=== PATIENT | male | born 1955 | race Caucasian/White ===

== ENCOUNTER 2021-07-30 09:54 | Outpatient (REF) | payer BC, SELFPAY ==
[2021-07-30 11:26] LABS: Hematocrit 48.8 % (42-52); Hemoglobin 15.8 g/dl (14.0-18.0); Mean Corpuscular HGB Conc 32.4 g/dl (31.0-36.0); Mean Corpuscular Hemoglobin 30.2 pg (27.0-33.0); Mean Corpuscular Volume 93.1 fL (80-98); Mean Platelet Volume 11.4 fL (9.4-12.4); Platelet Count 176 X10*3/uL (160-400); Red Blood Count 5.24 X10*6/uL (4.60-5.80); Red Cell Distribution Width 13.1 % (11.0-16.0); White Blood Count 9.7 X10*3/uL (4.8-10.8)
[2021-07-30 11:34] LABS: Alanine Aminotransferase 15 U/L (0-40); Alkaline Phosphatase 59 U/L (39-117); Anion Gap 12 (12-20); Aspartate Amino Transferase 21 U/L (5-37); Bilirubin Total 0.5 mg/dL (0.0-1.0); Blood Urea Nitrogen 11 mg/dL (9-16); Calcium 9.2 mg/dL (8.4-10.2); Carbon Dioxide 28 mmol/L (22-29); Chloride 108 mmol/L (96-108); Cholesterol 125 mg/dL; Estimated Glomerular Filt Rate > 60; Glucose Fasting 104 mg/dL (60-99); HDL Cholesterol 28 mg/dL; LDL Cholesterol Calculated 75 mg/dl; Potassium 4.6 mmol/L (3.3-5.1); Sodium 143 mmol/L (135-145); Total Protein 6.6 g/dL (6.5-8.0); Triglycerides 110 mg/dL
[2021-07-30 11:59] LABS: Prostate Specific Antigen Scr 1.78 ng/mL (<0.05-4.0)
== END 2021-07-30 09:55 | disposition home or self-care (01) ==
LOC: HO.HMGCLDS 09:54
PROVIDERS: PCP Internal Medicine; Visit Provider Internal Medicine
DX: Z12.5 Encounter for screening for malignant neoplasm of prostate (principal); E78.5 Hyperlipidemia, unspecified; F17.200 Nicotine dependence, unspecified, uncomplicated; I10 Essential (primary) hypertension
CPT/HCPCS: 36415; 80053; 80061; 84153; 85027

== ENCOUNTER 2022-06-24 06:30 | Outpatient (REF) | payer BC, SELFPAY ==
[2022-06-24 11:15] LABS: Hematocrit 48.7 % (42.0-52.0); Hemoglobin 15.8 g/dl (14.0-18.0); Mean Corpuscular HGB Conc 32.4 g/dl (31.0-36.0); Mean Corpuscular Hemoglobin 30.6 pg (27.0-33.0); Mean Corpuscular Volume 94.2 fL (80.0-98.0); Mean Platelet Volume 11.7 fL (9.4-12.4); Platelet Count 166 X10*3/uL (160-400); Red Blood Count 5.17 X10*6/uL (4.60-5.80); Red Cell Distribution Width 12.9 % (11.0-16.0); White Blood Count 7.6 X10*3/uL (4.8-10.8)
[2022-06-24 11:53] LABS: Alanine Aminotransferase 12 U/L (0-40); Alkaline Phosphatase 59 U/L (39-117); Anion Gap 14 (12-20); Aspartate Amino Transferase 19 U/L (5-37); Bilirubin Total 0.4 mg/dL (0.0-1.0); Blood Urea Nitrogen 16 mg/dL (9-16); Carbon Dioxide 26 mmol/L (22-29); Chloride 109 mmol/L (96-108); Cholesterol 133 mg/dL; Estimated Glomerular Filt Rate > 60; Glucose Fasting 108 mg/dL (60-99); HDL Cholesterol 33 mg/dL; LDL Cholesterol Calculated 74 mg/dl; Sodium 145 mmol/L (135-145); Total Protein 6.8 g/dL (6.5-8.0); Triglycerides 131 mg/dL
[2022-06-24 12:00] LABS: Prostate Specific Antigen Scr 3.26 ng/mL (<0.05-4.0)
[2022-06-24 12:18] LABS: Creatinine Urine 147.76 mg/dL; Microalbum/Creatinine Ratio Ur 54.1 ug/mg cr
== END 2022-06-24 06:31 | disposition home or self-care (01) ==
LOC: HO.HMGCLDS 06:30
PROVIDERS: Visit Provider Internal Medicine
DX: Z12.5 Encounter for screening for malignant neoplasm of prostate (principal); E78.5 Hyperlipidemia, unspecified; I10 Essential (primary) hypertension; R80.9 Proteinuria, unspecified
CPT/HCPCS: 36415; 80053; 80061; 82043; 84153; 85027

== ENCOUNTER 2023-01-25 08:00 | Outpatient (REF) | payer MEDICARE, SELFPAY ==
--- NOTE | ~2023-01-25 | CT_ITS ---
EXAMINATION: CT CHEST WITHOUT CONTRAST CLINICAL INFORMATION: Thoracic aortic aneurysm. COMPARISON: None TECHNIQUE: Multidetector volumetric CT imaging of the chest was done. Axial MIP volume rendering provided. Sagittal and coronal reformatted images were obtained. This CT examination was performed using dose optimization techniques as appropriate, variously including the following: *Automated exposure control *Adjustment of mA and/or kV according to patient size (this includes techniques or standardized protocols for targeted exams where dose is matched to indication/reason for exam; i.e. 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 There are minimal atelectatic changes in right upper lobe posteriorly. No additional areas of atelectasis, consolidation, nodules or mass. MEDIASTINUM: The thyroid lobes are symmetrical and normal. Central trachea and the bronchi are widely patent. Heart size and great vessels are normal caliber. Ascending aorta measures 4.0 x 4.2 cm. Descending thoracic aorta measures 3.2 x 3.2 cm on axial image 28/3. There is evidence of previous CABG changes. No abnormal size mediastinal or hilar lymph nodes seen. CORONARY ARTERY CALCIFICATION: Moderate coronary artery calcifications are present. PLEURA: There is no pleural effusion. No pleural mass or thickening. AXILLA: Small shotty lymph nodes are seen in the axilla bilaterally. The chest wall is unremarkable. UPPER ABDOMEN: Visualized liver, spleen, pancreas and bilateral adrenal glands are unremarkable. OSSEOUS STRUCTURES: No aggressive lytic or sclerotic process seen. There are median sternotomy sutures from previous intervention. CT/CT chest wo IV con IMPRESSION: 1. Mild aneurysmal dilatation of ascending aorta measuring 4.0 x 4.2 cm. Descending thoracic aorta measures 3.2 x 3.2 cm. 2. Minimal atelectatic changes right upper lobe posteriorly. Fleischner guidelines were followed.
== END 2023-01-25 08:01 | disposition home or self-care (01) ==
LOC: HO.CT 08:00
PROVIDERS: PCP Internal Medicine; Visit Provider Internal Medicine
DX: I71.20 Thoracic aortic aneurysm, without rupture, unspecified (principal)
CPT/HCPCS: 71250

== ENCOUNTER 2023-06-29 06:45 | Outpatient (REF) | payer MEDICARE, SELFPAY ==
[2023-06-29 11:30] LABS: MANUAL DIFF FLAG NO
[2023-06-29 11:47] LABS: Urine Cytology See Pathology rpt
[2023-06-29 11:49] LABS: Basophils Absolute Auto 0.1 X10*3/uL (0.0-0.2); Basophils Percent Auto 0.6 % (0-2); Eosinophils Absolute Auto 0.3 X10*3/uL (0.0-0.4); Eosinophils Percent Auto 3.5 % (0-4); Hematocrit 48.6 % (42.0-52.0); Hemoglobin 15.8 g/dl (14.0-18.0); Imm Gran Abs Auto 0.02 X10*3/uL (0.00-0.03); Imm Gran Pct Auto 0.3 % (0.0-0.4); Lymphocytes Absolute Auto 2.2 X10*3/uL (1.2-4.9); Mean Corpuscular HGB Conc 32.5 g/dl (31.0-36.0); Mean Corpuscular Hemoglobin 30.4 pg (27.0-33.0); Mean Corpuscular Volume 93.5 fL (80.0-98.0); Mean Platelet Volume 11.6 fL (9.4-12.4); Monocytes Absolute Auto 0.8 X10*3/uL (0.1-1.2); Monocytes Percent Auto 9.5 % (2-11); Neutrophils Absolute Auto 4.7 x10*3/uL (2.0-8.3); Neutrophils Percent Auto 59.1 % (45-73); Platelet Count 148 X10*3/uL (160-400); Red Cell Distribution Width 13.1 % (11.0-16.0)
[2023-06-29 11:52] LABS: Alanine Aminotransferase 15 U/L (0-40); Alkaline Phosphatase 56 U/L (39-117); Anion Gap 14 (12-20); Aspartate Amino Transferase 23 U/L (5-37); Bilirubin Total 0.7 mg/dL (0.0-1.0); Blood Urea Nitrogen 18 mg/dL (9-16); Calcium 9.3 mg/dL (8.4-10.2); Carbon Dioxide 25 mmol/L (22-29); Chloride 108 mmol/L (96-108); Cholesterol 118 mg/dL; Estimated Glomerular Filt Rate > 60; Glucose Fasting 120 mg/dL (60-99); HDL Cholesterol 31 mg/dL; LDL Cholesterol Calculated 68 mg/dl; Potassium 3.9 mmol/L (3.3-5.1); Sodium 143 mmol/L (135-145); Total Protein 7.2 g/dL (6.5-8.0); Triglycerides 96 mg/dL
[2023-06-29 11:55] LABS: Appearance Urine Turbid; Color Urine Dark Yellow; Glucose Urine UA Negative (Negative); Leukocyte Esterase Urine Trace (Negative); Nitrite Urine Negative (Negative); PH 5.5 (5.0-9.0); Specific Gravity - Urine 1.025 (1.005-1.025); UMIC TRIGGER UA YES; Urine Blood Moderate (2+) (Negative); Urine Ketones Trace mg/dL (Negative); Urine Protein 100 (2+) mg/dL (Neg-Trace)
[2023-06-29 12:01] LABS: Bacteria Urine None Seen (None Seen); Squamous Epithelial Cell Urine 0-2 /HPF (0-2)
[2023-06-29 12:08] LABS: PSA,Total (Free>4and<10) 3.01 ng/mL (0.00-4.00)
== END 2023-06-29 06:46 | disposition home or self-care (01) ==
LOC: HO.HMGCLDS 06:45
PROVIDERS: PCP Internal Medicine; Visit Provider Internal Medicine
DX: Z00.00 Encounter for general adult medical examination without abnormal findings (principal); Z12.5 Encounter for screening for malignant neoplasm of prostate; E78.5 Hyperlipidemia, unspecified; R31.29 Other microscopic hematuria; I10 Essential (primary) hypertension
CPT/HCPCS: 36415; 80053; 80061; 81001; 84153; 85025; 88112; 88121

== ENCOUNTER 2023-07-03 10:29 | Outpatient (AMB) | payer MEDICARE, SELFPAY ==
[2023-07-03 10:30] VITALS: BP 142/72; PULSE 59; O2SAT 96; BMI 31.3
--- NOTE | 2023-07-03 10:30 | A.OFFPC_ITS ---
Vital Signs 07/03/23 10:30 Height 5 ft 8 in Weight 206 lb BMI 31.3 BP 142/72 H Blood Pressure Location Lt brachial Position Sitting Pulse 59 Pulse Source Pulse Oximeter Pulse Oximetry (%) 96 Oxygen Delivery Method Room Air Intake Visit Reasons: 6m follow up Intake Note: Pt is here today for 6 months follow up visit. Allergies losartan Adverse Reaction (Intermediate, Verified 07/03/23 10:33) headache, muscle aches Medication List - Last Reconciled 07/03/23 by Merle Daniel MD ezetimibe-simvastatin 10-80 mg 1 tab PO DAILY famotidine (Pepcid) 40 mg PO BEDTIME metoprolol succinate ER 25 mg PO DAILY olmesartan 5 mg PO DAILY Tobacco use date assessed: 07/03/23 Fall risk assessment: No Falls in past year Last assessed Fall Risk: 07/03/23 Dental Screening Dental Screen Date: 07/03/23 Did you have a dental visit in the last 12 months?: No Did you have a dental problem in the last 6 months where you did not have access to dental care?: No Was dental information given to patient?: Patient declined HPI 6m follow up HPI Details Pt presents for f/u of hyperlipid and HTN. [facility], [facility] Medical History (Updated 07/03/23 @ 11:14 by Merle Daniel MD) Acute bacterial tonsillitis Annual physical exam Ascending aortic aneurysm GERD (gastroesophageal reflux disease) HTN (hypertension) Hyperlipidemia Lung nodule seen on imaging study Microhematuria Normal colonoscopy Proteinuria Smoker Tobacco dependence Surgical History H/O colonoscopy Hx of CABG Family History Father No problems noted. Social History Housing: House Patient Tobacco Use Status: Current everyday Tobacco user Cigarette Packs Per Day: 1 Cigarettes Per Day: 20.0 Years Smoked: 30 e-Cigarette/Vaping Use: Never Used Current occupational status: retired Cognitive needs: No Hearing needs: No Vision needs: Yes Questionnaire PHQ-9 Over the last 2 weeks, how often have you been bothered by any of the following problems? 1. Little interest or pleasure in doing things: not at all 2. Feeling down, depressed, or hopeless: not at all 3. Trouble falling or staying asleep, or sleeping too much: not at all 4. Feeling tired or having little energy: not at all 5. Poor appetite or overeating: not at all 6. Feeling bad about yourself - or that you are a failure or have let yourself or your family down: not at all 7. Trouble concentrating on things, such as reading the newspaper or watching television: not at all 8. Moving or speaking so slowly that other people could have noticed. Or the opposite - being so fidgety or restless that you have been moving around a lot more than usual: not at all 9. Thoughts that you would be better off or of hurting yourself in some way: not at all Total score: 0 Depression Screening Interpretation: Negative Source: Developed by Drs. Skyler Choudhury, Adriana Lee, Ubaldo Molina and colleagues, with an educational miah from [employer]. Thrive Questionnaire Date Thrive assessed: 07/03/23 I am a: Patient What is your living situation today?: I have a steady place to live Within the past 12 months, did the food you bought not last and you didn't have the money to get more?: Never true Within the past 12 months, did you worry whether your food would run out before you got money to buy more?: Never true Do you have trouble paying for medicines?: No Do you have trouble getting transportation to medical appointments?: No Do you have trouble paying your heating and electricity bill?: No Do you have trouble taking care of your child, family member or friend?: No Do you have trouble with day-to-day activities such as bathing, preparing meals, shopping, managing finances, etc.?: No Are you currently unemployed and looking for a job?: No Are you interested in more education?: No Please select the resources that you would like help with: None Currently or been in a relationship where the following occur: no concerns reported AUDIT C Alcohol Use Questionnaire (AUDIT-C) 1. How often do you have a drink containing alcohol?: Monthly or less 2. How many drinks containing alcohol do you have on a typical day when you are drinking?: 1 or 2 3. How often do you have six or more drinks on one occasion?: Never Total Score: 1 DC-7 AMB Questionnaire DC-7 Date DC - 7 assessed: 07/03/23 Feeling nervous, anxious, or on edge: 0 = Not at all Not being able to stop or control worryin = Not at all Worrying too much about different things: 0 = Not at all Trouble relaxin = Not at all Being so restless that it is hard to sit still: 0 = Not at all Becoming easily annoyed or irritable: 0 = Not at all Feeling afraid as if something awful might happen: 0 = Not at all Total DC-7 score (0-4 normal; 5-9 mild; 10-14 moderate; 15-21 severe): 0 Source: Developed by Drs. Skyler Choudhury, Adriana Lee, Ubaldo Molina and colleagues, with an educational miah from [employer]. Review of Systems Const All systems reviewed & are unremarkable except as noted in HPI and below Reports no additional complaints Eyes Reports no additional complaints ENT Reports no additional complaints Card Reports no additional complaints GI Reports no additional complaints Reports no additional complaints Musc Reports no additional complaints Physical exam (Primary Care) Vital Signs: Last Vital Signs Pulse 59 07/03/23 10:30 BP 142/72 H 07/03/23 10:30 Pulse Ox 96 07/03/23 10:30 Oxygen Delivery Method Room Air 07/03/23 10:30 BMI result Body Mass Index 31.3 Tobacco/Smoking Status: Tobacco use Status Tobacco use date assessed 07/03/23 07/03/23 10:35 Patient Tobacco Use Status Current everyday Tobacco 07/03/23 10:35 e-Cigarette/Vaping Use Never Used 07/03/23 10:35 PHQ-9: PHQ-9 Score PHQ-9: Total score 0 07/03/23 10:44 Depression Screening Interpretation: Negative Thrive Assessment: Date of Thrive Assessment Date Thrive assessed 07/03/23 07/03/23 10:35 Currently or been in a relationship where the following occur: no concerns reported Const General: no acute distress HENMT Head: Yes normal to inspection Ears: hearing grossly normal bilaterally Throat: Yes posterior oropharynx normal Eyes General: appearance normal, both eyes and all related structures Neck Neck: Yes no lymphadenopathy and Yes supple Resp Effort & Inspection: normal respiratory effort Auscultation: clear to auscultation bilaterally Cardio Rhythm: regular rhythm Heart sounds: S1 normal heart sound present and S2 normal heart sound present GI Inspection: Yes normal to inspection Palpation (GI): Soft to palpation Percussion: Yes normal to percussion Auscultation: normal bowel sounds Assessment and Plan Assessment & Plan (1) ASB (asymptomatic bacteriuria): Code(s): R82.71 - Bacteriuria Plan: check urine culture, pt denies BPH symptoms (2) Ascending aortic aneurysm: Comment: CT scan [facility] 06/2021 stable 4.2 cm ascending AA since 2013, Echo 01/2020 nl EF, CT 02/16 4.0X4.2 ascending aorta Code(s): I71.2 - Thoracic aortic aneurysm, without rupture (3) Hyperlipidemia: Code(s): E78.5 - Hyperlipidemia, unspecified Plan: cont meds (4) Smoker: Comment: 1 PPD, >30 yrs, trying to quit Code(s): F17.200 - Nicotine dependence, unspecified, uncomplicated Plan: tobacco quitting discussed (5) HTN (hypertension): Comment: continue Metoprolol Code(s): I10 - Essential (primary) hypertension Plan: add Olmesartan 5 mg, f/u 1 month Orders: Orders Urine Culture Today R82.71 - Bacteriuria Medications: New olmesartan 5 mg PO DAILY 30 tabs 0RF Coding Level of Care Code Est Pt Level 4 (80983) Diagnoses ASB (asymptomatic bacteriuria) R82.71 Ascending aortic aneurysm I71.2 Hyperlipidemia E78.5 Smoker F17.200 HTN (hypertension) I10
== END 2023-07-03 11:19 | disposition home or self-care (01) ==
PROVIDERS: Visit Provider Internal Medicine
DX: R82.71 Bacteriuria (principal); I71.20 Thoracic aortic aneurysm, without rupture, unspecified; F17.200 Nicotine dependence, unspecified, uncomplicated; I10 Essential (primary) hypertension; E78.5 Hyperlipidemia, unspecified
CPT/HCPCS: 99214

== ENCOUNTER 2023-07-03 10:55 | Outpatient (REF) | payer MEDICARE, SELFPAY | END 2023-07-03 10:56 | disposition home or self-care (01) | LOC: HO.HMGCLDS 10:55 | PROVIDERS: PCP Internal Medicine; Visit Provider Internal Medicine | DX: R82.71 Bacteriuria (principal) | CPT/HCPCS: 87086 ==

== ENCOUNTER 2023-08-10 09:50 | Outpatient (AMB) | payer MEDICARE, SELFPAY ==
--- NOTE | 2023-08-10 09:52 | A.OFFPC_ITS ---
Vital Signs 08/10/23 09:53 Height 5 ft 8 in Weight 202 lb 1 oz BMI 30.7 BP 120/78 Blood Pressure Location Lt brachial Position Sitting Pulse 56 Pulse Source Pulse Oximeter Pulse Oximetry (%) 100 Oxygen Delivery Method Room Air Intake Visit Reasons: 1 month follow up on HTN Intake Note: Patient is here for follow up on hypertension, he states Olmesartan is not making him feel good. Allergies losartan Adverse Reaction (Intermediate, Verified 08/10/23 09:55) headache, muscle aches olmesartan Adverse Reaction (Intermediate, Verified 08/10/23 10:19) Dizziness olmestar Adverse Reaction (Uncoded 08/10/23 10:19) Dizziness Medication List - Last Reconciled 08/10/23 by Merle Daniel MD ezetimibe-simvastatin 10-80 mg 1 tab PO DAILY famotidine (Pepcid) 40 mg PO BEDTIME metoprolol succinate ER 25 mg PO DAILY olmesartan 5 mg PO DAILY Tobacco use date assessed: 08/10/23 Fall risk assessment: No Falls in past year Last assessed Fall Risk: 08/10/23 Dental Screening Dental Screen Date: 08/10/23 Did you have a dental visit in the last 12 months?: No Did you have a dental problem in the last 6 months where you did not have access to dental care?: No Was dental information given to patient?: No HPI 1 month follow up on HTN HPI Details Patient presents for the follow-up on hypertension. He tried olmesartan for 2 weeks but developed postural hypotension and lightheadedness, which resolved after he stopped taking the medication. [facility] Medical History Annual physical exam Acute bacterial tonsillitis Tobacco dependence Lung nodule seen on imaging study Normal colonoscopy Smoker Proteinuria Microhematuria HTN (hypertension) Ascending aortic aneurysm GERD (gastroesophageal reflux disease) Hyperlipidemia Surgical History H/O colonoscopy Hx of CABG Family History Father No problems noted. Social History Housing: House Patient Tobacco Use Status: Current everyday Tobacco user Cigarette Packs Per Day: 1 Cigarettes Per Day: 20.0 Years Smoked: 30 e-Cigarette/Vaping Use: Never Used Current occupational status: retired Cognitive needs: No Hearing needs: No Vision needs: Yes Questionnaire Thrive Questionnaire Date Thrive assessed: 07/03/23 DC-7 AMB Questionnaire DC-7 Date DC - 7 assessed: 07/03/23 Source: Developed by Drs. Skyler Choudhury, Adriana Lee, Ubaldo Molina and colleagues, with an educational miah from [employer]. Review of Systems Const All systems reviewed & are unremarkable except as noted in HPI and below Reports no additional complaints Eyes Reports no additional complaints ENT Reports no additional complaints Card Reports no additional complaints Resp Reports no additional complaints GI Reports no additional complaints Physical exam (Primary Care) Vital Signs: Last Vital Signs Pulse 56 08/10/23 09:53 BP 120/78 08/10/23 09:53 Pulse Ox 100 08/10/23 09:53 Oxygen Delivery Method Room Air 08/10/23 09:53 BMI result Body Mass Index 30.7 Tobacco/Smoking Status: Tobacco use Status Tobacco use date assessed 08/10/23 08/10/23 10:01 Patient Tobacco Use Status Current everyday Tobacco 08/10/23 10:01 e-Cigarette/Vaping Use Never Used 08/10/23 10:01 Thrive Assessment: Date of Thrive Assessment Date Thrive assessed 07/03/23 08/10/23 10:01 Const General: no acute distress HENMT Head: Yes normal to inspection Throat: Yes posterior oropharynx normal Assessment and Plan Assessment & Plan (1) Hyperlipidemia: Code(s): E78.5 - Hyperlipidemia, unspecified Plan: Continue current medications (2) HTN (hypertension): Comment: continue Metoprolol Code(s): I10 - Essential (primary) hypertension Orders: Orders Comprehensive [place]. Panel Fast 6 Months E78.5 - Hyperlipidemia, unspecified, I10 - Essential (primary) hypertension Hemoglobin A1c 6 Months E78.5 - Hyperlipidemia, unspecified, I10 - Essential (primary) hypertension Lipid Panel 6 Months E78.5 - Hyperlipidemia, unspecified, I10 - Essential (primary) hypertension Medications: Discontinued olmesartan Discontinued Reason: Doctor's Order 5 mg PO DAILY 90 tabs 0RF Coding Level of Care Code Est Pt Level 3 (81124) Diagnoses Hyperlipidemia E78.5 HTN (hypertension) I10
[2023-08-10 09:53] VITALS: BP 120/78; PULSE 56; O2SAT 100; BMI 30.7
== END 2023-08-10 11:39 | disposition home or self-care (01) ==
PROVIDERS: PCP Internal Medicine; Visit Provider Internal Medicine
DX: E78.5 Hyperlipidemia, unspecified (principal); I10 Essential (primary) hypertension
CPT/HCPCS: 99213

== ENCOUNTER 2024-02-07 07:49 | Outpatient (REF) | payer MEDICARE, SELFPAY ==
[2024-02-07 12:11] LABS: Alanine Aminotransferase 14 U/L (0-40); Alkaline Phosphatase 51 U/L (39-117); Anion Gap 11 (12-20); Aspartate Amino Transferase 23 U/L (5-37); Bilirubin Total 0.6 mg/dL (0.0-1.0); Blood Urea Nitrogen 21 mg/dL (9-16); Calcium 9.3 mg/dL (8.4-10.2); Carbon Dioxide 28 mmol/L (22-29); Chloride 109 mmol/L (96-108); Cholesterol 139 mg/dL (<200); Estimated Glomerular Filt Rate > 60; Glucose Fasting 120 mg/dL (60-99); HDL Cholesterol 30 mg/dL (>40); LDL Cholesterol Calculated 86 mg/dL (<100); Potassium 3.6 mmol/L (3.3-5.1); Sodium 144 mmol/L (135-145); Total Protein 7.2 g/dL (6.5-8.0); Triglycerides 115 mg/dL (<150)
[2024-02-07 14:53] LABS: Estimated Average Glucose 120 mg/dL; Hemoglobin A1c % 5.8 % (<6.0)
== END 2024-02-07 07:50 | disposition home or self-care (01) ==
LOC: HO.HMGCLDS 07:49
PROVIDERS: PCP Internal Medicine; Visit Provider Internal Medicine
DX: E78.5 Hyperlipidemia, unspecified (principal); I10 Essential (primary) hypertension
CPT/HCPCS: 36415; 80053; 80061; 83036

== ENCOUNTER 2024-02-13 08:10 | Outpatient (AMB) | payer MEDICARE, SELFPAY ==
[2024-02-13 08:19] VITALS: BP 136/86; PULSE 48; O2SAT 96; BMI 31.0
--- NOTE | 2024-02-13 08:19 | MHC.PC.OV ---
Vital Signs 02/13/24 08:19 Height 5 ft 8 in Weight 204 lb BMI 31.0 BP 136/86 Blood Pressure Location Lt brachial Position Sitting Pulse 48 L Pulse Source Pulse Oximeter Pulse Oximetry (%) 96 Oxygen Delivery Method Room Air Intake Visit Reasons: Annual PE Intake Note: Pt is here today for PE. Allergies losartan Adverse Reaction (Intermediate, Verified 02/13/24 08:25) headache, muscle aches olmesartan Adverse Reaction (Intermediate, Verified 02/13/24 08:25) Dizziness olmestar Adverse Reaction (Uncoded 02/13/24 08:25) Dizziness Medication List - Last Reconciled 02/13/24 by Merle Daniel MD aspirin 81 mg PO DAILY ezetimibe-simvastatin 10-80 mg 1 tab PO DAILY famotidine (Pepcid) 40 mg PO BEDTIME metoprolol succinate ER 25 mg PO DAILY Tobacco use date assessed: 02/13/24 Fall risk assessment: No Falls in past year Last assessed Fall Risk: 02/13/24 Dental Screening Dental Screen Date: 02/13/24 Did you have a dental visit in the last 12 months?: Yes Did you have a dental problem in the last 6 months where you did not have access to dental care?: No Was dental information given to patient?: Patient has dentist HPI Annual PE HPI Details Patient presents for PE visit [facility] Medical History (Updated 02/13/24 @ 08:56 by Merle Daniel MD) Annual physical exam Acute bacterial tonsillitis Tobacco dependence Lung nodule seen on imaging study Normal colonoscopy Smoker Proteinuria Microhematuria HTN (hypertension) Ascending aortic aneurysm GERD (gastroesophageal reflux disease) Hyperlipidemia Surgical History H/O colonoscopy Hx of CABG Family History Father No problems noted. Social History Housing: House Patient Tobacco Use Status: Current everyday Tobacco user Cigarette Packs Per Day: 1 Cigarettes Per Day: 20.0 Years Smoked: 30 e-Cigarette/Vaping Use: Never Used Current occupational status: retired Cognitive needs: No Hearing needs: No Vision needs: Yes Questionnaire PHQ-9 Over the last 2 weeks, how often have you been bothered by any of the following problems? 1. Little interest or pleasure in doing things: not at all 2. Feeling down, depressed, or hopeless: not at all 3. Trouble falling or staying asleep, or sleeping too much: not at all 4. Feeling tired or having little energy: not at all 5. Poor appetite or overeating: not at all 6. Feeling bad about yourself - or that you are a failure or have let yourself or your family down: not at all 7. Trouble concentrating on things, such as reading the newspaper or watching television: not at all 8. Moving or speaking so slowly that other people could have noticed. Or the opposite - being so fidgety or restless that you have been moving around a lot more than usual: not at all 9. Thoughts that you would be better off or of hurting yourself in some way: not at all Total score: 0 Depression Screening Interpretation: Negative Depression Screening Done: Yes Source: Developed by Drs. Skyler Choudhury, Adriana Lee, Ubaldo Molina and colleagues, with an educational miah from [employer]. Thrive Questionnaire Date Thrive assessed: 02/13/24 I am a: Patient What is your living situation today?: I have a steady place to live Within the past 12 months, did the food you bought not last and you didn't have the money to get more?: Never true Within the past 12 months, did you worry whether your food would run out before you got money to buy more?: Never true Do you have trouble paying for medicines?: No Do you have trouble getting transportation to medical appointments?: No Do you have trouble paying your heating and electricity bill?: No Do you have trouble taking care of your child, family member or friend?: No Do you have trouble with day-to-day activities such as bathing, preparing meals, shopping, managing finances, etc.?: No Are you currently unemployed and looking for a job?: No Are you interested in more education?: No Please select the resources that you would like help with: None THRIVE Score: 0 AUDIT C Alcohol Use Questionnaire (AUDIT-C) 1. How often do you have a drink containing alcohol?: Monthly or less 2. How many drinks containing alcohol do you have on a typical day when you are drinking?: 1 or 2 3. How often do you have six or more drinks on one occasion?: Never Total Score: 1 DC-7 AMB Questionnaire DC-7 Date DC - 7 assessed: 02/13/24 Feeling nervous, anxious, or on edge: 0 = Not at all Not being able to stop or control worryin = Not at all Worrying too much about different things: 0 = Not at all Trouble relaxin = Not at all Being so restless that it is hard to sit still: 0 = Not at all Becoming easily annoyed or irritable: 0 = Not at all Feeling afraid as if something awful might happen: 0 = Not at all Total DC-7 score (0-4 normal; 5-9 mild; 10-14 moderate; 15-21 severe): 0 Source: Developed by Drs. Skyler Choudhury, Adriana Lee, Ubaldo Molina and colleagues, with an educational miah from [employer]. Review of Systems Const All systems reviewed & are unremarkable except as noted in HPI and below Reports no additional complaints Eyes Reports no additional complaints ENT Reports no additional complaints Card Reports no additional complaints Resp Reports no additional complaints GI Reports no additional complaints Reports no additional complaints Physical exam (Primary Care) Vital Signs: Last Vital Signs Pulse 48 L 02/13/24 08:19 BP 136/86 02/13/24 08:19 Pulse Ox 96 02/13/24 08:19 Oxygen Delivery Method Room Air 02/13/24 08:19 BMI result Body Mass Index 31.0 Tobacco/Smoking Status: Tobacco use Status Tobacco use date assessed 02/13/24 02/13/24 08:26 Patient Tobacco Use Status Current everyday Tobacco 02/13/24 08:19 e-Cigarette/Vaping Use Never Used 02/13/24 08:19 PHQ-9: PHQ-9 Score PHQ-9: Total score 0 02/13/24 08:28 Depression Screening Interpretation: Negative Thrive Assessment: Date of Thrive Assessment Date Thrive assessed 02/13/24 02/13/24 08:28 Const General: no acute distress HENMT Head: Yes normal to inspection Ears: hearing grossly normal bilaterally Face and sinus: Yes normal facial exam Throat: Yes posterior oropharynx normal Eyes General: appearance normal, both eyes and all related structures Neck Neck: Yes no lymphadenopathy and Yes supple Resp Effort & Inspection: normal respiratory effort Auscultation: clear to auscultation bilaterally Cardio Rhythm: regular rhythm Heart sounds: S1 normal heart sound present and S2 normal heart sound present GI Inspection: Yes normal to inspection Palpation (GI): Soft to palpation Percussion: Yes normal to percussion Auscultation: normal bowel sounds Assessment and Plan Assessment & Plan (1) Proteinuria: Comment: intolerant to Losartan (dizzy, dry mouth), Olmesartan Code(s): R80.9 - Proteinuria, unspecified Plan: Check UA renal ultrasound and referred to Nephrology (2) Annual physical exam: Code(s): Z00.00 - Encounter for general adult medical examination without abnormal findings Plan: Well-balanced diet regular physical activity discussed with the patient he was advised to quit smoking. Patient declined colonoscopy Cologuard will be sent (3) Hyperlipidemia: Code(s): E78.5 - Hyperlipidemia, unspecified Plan: Continue statin (4) Microhematuria: Comment: multiple atypical squamous cells on multiple urine cytology, negative urovysion, cystoscopy 01/2020, f/u , [facility], negative urine cytology 07/19 Code(s): R31.29 - Other microscopic hematuria Plan: Follow-up with urology (5) HTN (hypertension): Comment: continue Metoprolol, intolerant to KATHY inhibitors and ARBs Code(s): I10 - Essential (primary) hypertension Plan: Continue metoprolol Orders: Orders UA w Microscopic Today R80.9 - Proteinuria, unspecified, R82.71 - Bacteriuria Comprehensive [place]. Panel Fast 6 Months E78.5 - Hyperlipidemia, unspecified, I10 - Essential (primary) hypertension, R31.29 - Other microscopic hematuria, R80.9 - Proteinuria, unspecified, Z00.00 - Encounter for general adult medical examination without abnormal findings Hemoglobin A1c 6 Months E78.5 - Hyperlipidemia, unspecified, I10 - Essential (primary) hypertension, R31.29 - Other microscopic hematuria, R80.9 - Proteinuria, unspecified, Z00.00 - Encounter for general adult medical examination without abnormal findings Lipid Panel 6 Months E78.5 - Hyperlipidemia, unspecified, I10 - Essential (primary) hypertension, R31.29 - Other microscopic hematuria, R80.9 - Proteinuria, unspecified, Z00.00 - Encounter for general adult medical examination without abnormal findings Microalbumin, Random (w Creat) 6 Months E78.5 - Hyperlipidemia, unspecified, I10 - Essential (primary) hypertension, R31.29 - Other microscopic hematuria, R80.9 - Proteinuria, unspecified, Z00.00 - Encounter for general adult medical examination without abnormal findings US renal BI Today R80.9 - Proteinuria, unspecified, R82.71 - Bacteriuria Complete Blood Count Auto Diff 6 Months E78.5 - Hyperlipidemia, unspecified, I10 - Essential (primary) hypertension, R31.29 - Other microscopic hematuria, R80.9 - Proteinuria, unspecified, Z00.00 - Encounter for general adult medical examination without abnormal findings UA CC w/rflx Micro + Cult 6 Months E78.5 - Hyperlipidemia, unspecified, I10 - Essential (primary) hypertension, R31.29 - Other microscopic hematuria, R80.9 - Proteinuria, unspecified, Z00.00 - Encounter for general adult medical examination without abnormal findings PSA,Total (Free>4and<10) 6 Months E78.5 - Hyperlipidemia, unspecified, I10 - Essential (primary) hypertension, R31.29 - Other microscopic hematuria, R80.9 - Proteinuria, unspecified, Z00.00 - Encounter for general adult medical examination without abnormal findings Referrals Cologuard Test Z12.11 - Encounter for screening for malignant neoplasm of colon, Z12.12 - Encounter for screening for malignant neoplasm of rectum Nephrology Referral R31.21 - Asymptomatic microscopic hematuria, R80.9 - Proteinuria, unspecified Coding Level of Care Code Est Pt Prev Care >65y(57524) Diagnoses Proteinuria R80.9 Annual physical exam Z00.00 Hyperlipidemia E78.5 Microhematuria R31.29 HTN (hypertension) I10
== END 2024-02-13 08:50 | disposition home or self-care (01) ==
PROVIDERS: PCP Internal Medicine; Visit Provider Internal Medicine
DX: R80.9 Proteinuria, unspecified (principal); Z00.00 Encounter for general adult medical examination without abnormal findings; E78.5 Hyperlipidemia, unspecified; R31.29 Other microscopic hematuria; I10 Essential (primary) hypertension
CPT/HCPCS: 99397

== ENCOUNTER 2024-02-13 08:54 | Outpatient (REF) | payer MEDICARE, SELFPAY ==
[2024-02-13 11:25] LABS: Appearance Urine Clear; Color Urine Dark Yellow; Glucose Urine UA Negative (Negative); Leukocyte Esterase Urine Trace (Negative); Nitrite Urine Negative (Negative); Specific Gravity - Urine 1.025 (1.005-1.025); UMIC TRIGGER UA YES; Urine Blood Small (1+) (Negative); Urine Ketones Negative (Negative); Urine Protein 30 (1+) mg/dL (Neg-Trace)
[2024-02-13 11:30] LABS: Bacteria Urine None Seen (None Seen); Squamous Epithelial Cell Urine 0-2 /HPF (0-2)
== END 2024-02-13 08:55 | disposition home or self-care (01) ==
LOC: HO.HMGCLDS 08:54
PROVIDERS: PCP Internal Medicine; Visit Provider Internal Medicine
DX: R80.9 Proteinuria, unspecified (principal); R82.71 Bacteriuria
CPT/HCPCS: 81001

== ENCOUNTER 2024-02-27 13:33 | Outpatient (AMB) | payer MEDICARE, SELFPAY ==
--- NOTE | 2024-02-27 14:17 | HO.NEPHOV_ITS ---
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 He has H/O h ypertension and is on medications. From the H/O he has not tolerated ACEI/ARB but he is unable to say what the issue was with those medications. He does not take any excessive NSAID's. He is a smoker and has pulmonary nodule but has no H/O malignancies. He is not a diabetic but has H/O glucose intolerance. He has been having some proteinuria but no edema. He has no H/O macroscopic hematuria but had atypical cells when investigated for microscopic hematuria. He even had cystoscopy which was unrevealing. He has H/O ascending aortic dilatation. He denies H/O sensorineural deafness, recurrent sinusitis, sore throat, epistaxis, photosensitivity, new bone or back pain. He has no H/O hypercalcemia but has H/o CAD as well as CABG. He denies taking excessive NSAID's. His serum creatinine has been stable. [facility] Medical History (Updated 03/18/24 @ 16:49 by Laron Dobbins MD) Annual physical exam Acute bacterial tonsillitis Tobacco dependence Lung nodule seen on imaging study Normal colonoscopy Smoker Proteinuria Microhematuria HTN (hypertension) Ascending aortic aneurysm GERD (gastroesophageal reflux disease) Hyperlipidemia Surgical History H/O colonoscopy Hx of CABG Family History Father No problems noted. Social History Housing: House Patient Tobacco Use Status: Current everyday Tobacco user Cigarette Packs Per Day: 1 Cigarettes Per Day: 20.0 Years Smoked: 30 e-Cigarette/Vaping Use: Never Used Current occupational status: retired Cognitive needs: No Hearing needs: No Vision needs: Yes Physical Exam Vital Signs: Last Vital Signs Pulse 61 02/27/24 14:19 BP 140/80 H 02/27/24 14:19 Pulse Ox 95 02/27/24 14:19 Oxygen Delivery Method Room Air 02/27/24 14:19 BMI result Body Mass Index 30.6 Const General: comfortable and no acute distress Orientation/consciousness: patient oriented x3 HEENT Head: Yes normocephalic Mouth: Normal oral and palatal mucosa present Eyes EOM: EOMs intact bilaterally Neck Neck: Yes supple Resp Auscultation: clear to auscultation bilaterally Cardio Jugular venous distension: no JVD Rate: regular rate GI Palpation (GI): Soft to palpation Auscultation: normal bowel sounds General: Yes no CVA tenderness Back/Spine/Pelvis Back: no CVA tenderness Skin General skin exam: no rashes or lesions noted Neuro General: patient oriented x3 and moves all extremities Extrem General: Yes no pedal edema Results Reviewed Nephrology Results: Hgb 15.8 g/dl (14.0-18.0) 06/29/23 WBC 8.0 X10*3/uL (4.8-10.8) 06/29/23 Plt Count 148 X10*3/uL (160-400) L 06/29/23 Sodium 144 mmol/L (135-145) 02/07/24 Potassium 3.6 mmol/L (3.3-5.1) 02/07/24 Chloride 109 mmol/L (96-108) H 02/07/24 Carbon Dioxide 28 mmol/L (22-29) 02/07/24 BUN 21 mg/dL (9-16) H 02/07/24 Creatinine 0.94 mg/dL (0.5-1.4) 02/07/24 Calcium 9.3 mg/dL (8.4-10.2) 02/07/24 Urine Protein 30 (1+) mg/dL (Neg-Trace) H 02/13/24 Urine Creatinine 147.76 mg/dL 06/24/22 Assessment & Plan Assessment & Plan (1) Proteinuria: Comment: intolerant to Losartan (dizzy, dry mouth), Olmesartan Code(s): R80.9 - Proteinuria, unspecified Category: Medical Qualifiers: Proteinuria type: other Qualified Code(s): R80.8 - Other proteinuria (2) HTN (hypertension): Comment: continue Metoprolol, intolerant to KATHY inhibitors and ARBs Code(s): I10 - Essential (primary) hypertension Category: Medical Qualifiers: Hypertension type: primary hypertension Qualified Code(s): I10 - Essential (primary) hypertension Plan Alfonso has proteinuria likely from vascular etiology. Given H/O M/S hematuria in the past, I have ordered extensive work up including renal imaging as well as 24 hour urine for protein. Patient has H/O CAD as well as CABG. He was unsure what his intolerance to ACEI or ARB was. He may need a renal biopsy based on evolving data. Differential diagnosis is quite broad at this point. All these have been explained in detail. More than 50 % time spent discussing potential etiologies, work up and management strategies. Answered all questions. Follow up given Orders: Orders Proteinase 3 PR3 Antibodies 02/27/24 R80.9 - Proteinuria, unspecified Anti Glomerular Basement Memb 02/27/24 R80.9 - Proteinuria, unspecified Complement C4 02/27/24 R80.9 - Proteinuria, unspecified Hemoglobin A1c 02/27/24 R80.9 - Proteinuria, unspecified Protein, 24 Hr Urine Group 03/02/24 R80.9 - Proteinuria, unspecified Anti DNA DS Antibody 02/27/24 R80.9 - Proteinuria, unspecified Myeloperoxidase Antibody 02/27/24 R80.9 - Proteinuria, unspecified Complement C3 02/27/24 R80.9 - Proteinuria, unspecified Immunofixation Pnl, Serum 02/27/24 R80.9 - Proteinuria, unspecified Phospholipase A2 Receptor Pnl 02/27/24 R80.9 - Proteinuria, unspecified Hepatitis B Surface Antigen 02/27/24 R80.9 - Proteinuria, unspecified Hepatitis B Core Antibody 02/27/24 R80.9 - Proteinuria, unspecified US renal BI 02/27/24 R80.9 - Proteinuria, unspecified
[2024-02-27 14:19] VITALS: BP 140/80; PULSE 61; O2SAT 95; BMI 30.6
== END 2024-02-27 14:46 | disposition home or self-care (01) ==
LOC: HO.HKAS 13:33
PROVIDERS: PCP Internal Medicine; Referring Provider Internal Medicine; Visit Provider Internal Medicine Nephrology
DX: R80.8 Other proteinuria (principal); I10 Essential (primary) hypertension
CPT/HCPCS: 99204

== ENCOUNTER → 2024-02-27 13:33 | Outpatient (BNVA) | payer MEDICARE, SELFPAY | PROVIDERS: PCP Internal Medicine; Referring Provider Internal Medicine; Visit Provider Internal Medicine Nephrology | DX: R80.9 Proteinuria, unspecified (principal); Z95.1 Presence of aortocoronary bypass graft | CPT/HCPCS: 99202 ==

== ENCOUNTER 2024-03-02 06:00 | Outpatient (REF) | payer MEDICARE, SELFPAY ==
[2024-03-03 11:22] LABS: Creatinine, mg/dL 105.57; Protein mg/dL 13 mg/dL
[2024-03-03 11:35] LABS: Creatinine, 24Hr Urine 2.8 G/Day (1.0-2.0); Protein 24 Hr Urine 341 mg/Day (<150); Total Volume 24 Hour Urine 2625 mL
== END 2024-03-02 06:01 | disposition home or self-care (01) ==
LOC: HO.HMGCLNP 06:00
PROVIDERS: PCP Internal Medicine; Visit Provider Internal Medicine Nephrology
DX: R80.9 Proteinuria, unspecified (principal)
CPT/HCPCS: 84156

== ENCOUNTER 2024-03-25 10:02 | Outpatient (REF) | payer MEDICARE, SELFPAY ==
--- NOTE | ~2024-03-25 | US_ITS ---
EXAMINATION: US RETROPERITONEAL LIMITED (RENAL ONLY) CLINICAL INFORMATION: Proteinuria. COMPARISON: None available. TECHNIQUE: Real-time imaging of the kidneys. FINDINGS: RIGHT KIDNEY: 10.7 x 5.3 x 5.2 cm (SAG x AP x TRV). The kidney is normal in size, contour, and echogenicity. Renal cortical thickness is normal. No calculi. No hydronephrosis. Tiny simple cyst in the lower pole measuring 4 mm. No follow-up imaging is recommended. LEFT KIDNEY: 11.4 x 5.0 x 5.3 cm (SAG x AP x TRV). The kidney is normal in size, contour, and echogenicity. Renal cortical thickness is normal. No calculi. Tiny 6 mm simple cyst in the mid kidney and 4 mm simple cyst in the upper kidney. No follow-up imaging is recommended. US/US renal BI IMPRESSION: Normal-appearing renal parenchyma. No hydronephrosis.
== END 2024-03-25 10:03 | disposition home or self-care (01) ==
LOC: HO.US 10:02
PROVIDERS: PCP Internal Medicine; Visit Provider Internal Medicine Nephrology
DX: R80.9 Proteinuria, unspecified (principal)
CPT/HCPCS: 76775

== ENCOUNTER 2024-04-23 06:01 | Outpatient (REF) | payer MEDICARE, SELFPAY ==
[2024-04-23 10:51] LABS: Estimated Average Glucose 126 mg/dL
[2024-04-23 11:45] LABS: HBc Num1 0.09 S/CO (0.00-0.79); HBsAGNum1 0.29 S/CO (0.00-0.99); Hepatitis B Core Antibody Nonreactive (Nonreactive); Hepatitis B Surface Antigen Negative (Negative)
[2024-04-24 15:03] LABS: Anti DNA DS Antibody <1 IU/mL; Anti Glomerular Basement Memb <1.0 AI; Myeloperoxidase Antibody <1.0 AI; Proteinase 3 PR3 Antibodies <1.0 AI
[2024-04-25 16:13] LABS: IgA 207 mg/dL (70-320); IgG 1106 mg/dL (600-1540); IgM 84 mg/dL (50-300)
[2024-04-27 01:28] LABS: Complement C3 59 mg/dL (82-185)
[2024-04-27 17:37] LABS: Phospholipase A2 IgG ELISA <4 RU/mL; Phospholipase A2 IgG IFA NEGATIVE (NEGATIVE)
== END 2024-04-23 06:02 | disposition home or self-care (01) ==
LOC: HO.HMGCLDS 06:01
PROVIDERS: PCP Internal Medicine; Visit Provider Internal Medicine Nephrology
DX: R80.9 Proteinuria, unspecified (principal)
CPT/HCPCS: 36415; 82784; 83036; 83520; 86021; 86160; 86225; 86255; 86334; 86704; 87340

== ENCOUNTER 2024-04-30 09:25 | Outpatient (AMB) | payer MEDICARE, SELFPAY ==
--- NOTE | 2024-04-30 09:30 | HO.NEPHOV_ITS ---
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 He has H/O hyp ertension and is on medications. From the H/O he has not tolerated ACEI/ARB but he is unable to say what the issue was with those medications. He does not take any excessive NSAID's. He is a smoker and has pulmonary nodule but has no H/O malignancies. He is not a diabetic but has H/O glucose intolerance. He has been having some proteinuria but no edema. He has no H/O macroscopic hematuria but had atypical cells when investigated for microscopic hematuria. He even had cystoscopy which was unrevealing. He has H/O ascending aortic dilatation. He denies H/O sensorineural deafness, recurrent sinusitis, sore throat, epistaxis, photosensitivity, new bone or back pain. He has no H/O hypercalcemia but has H/o CAD as well as CABG. He denies taking excessive NSAID's. His serum creatinine has been stable.He had a 24 hour urine for protein which showed 341 Gram of protein. [facility] Medical History (Updated 04/30/24 @ 09:33 by Laron Dobbins MD) Annual physical exam Acute bacterial tonsillitis Tobacco dependence Lung nodule seen on imaging study Normal colonoscopy Smoker Proteinuria Microhematuria HTN (hypertension) Ascending aortic aneurysm GERD (gastroesophageal reflux disease) Hyperlipidemia Surgical History H/O colonoscopy Hx of CABG Family History Father No problems noted. Social History Housing: House Patient Tobacco Use Status: Current everyday Tobacco user Cigarette Packs Per Day: 1 Cigarettes Per Day: 20.0 Years Smoked: 30 e-Cigarette/Vaping Use: Never Used Current occupational status: retired Cognitive needs: No Hearing needs: No Vision needs: Yes Physical Exam Const General: comfortable and no acute distress Orientation/consciousness: patient oriented x3 HEENT Head: Yes normocephalic Mouth: Normal oral and palatal mucosa present Eyes EOM: EOMs intact bilaterally Neck Neck: Yes supple Resp Auscultation: clear to auscultation bilaterally Cardio Jugular venous distension: no JVD Rate: regular rate GI Palpation (GI): Soft to palpation Auscultation: normal bowel sounds General: Yes no CVA tenderness Back/Spine/Pelvis Back: no CVA tenderness Skin General skin exam: no rashes or lesions noted Neuro General: patient oriented x3 and moves all extremities Extrem General: Yes no pedal edema Results Reviewed Nephrology Results: Hgb 15.8 g/dl (14.0-18.0) 06/29/23 WBC 8.0 X10*3/uL (4.8-10.8) 06/29/23 Plt Count 148 X10*3/uL (160-400) L 06/29/23 Sodium 144 mmol/L (135-145) 02/07/24 Potassium 3.6 mmol/L (3.3-5.1) 02/07/24 Chloride 109 mmol/L (96-108) H 02/07/24 Carbon Dioxide 28 mmol/L (22-29) 02/07/24 BUN 21 mg/dL (9-16) H 02/07/24 Creatinine 0.94 mg/dL (0.5-1.4) 02/07/24 Calcium 9.3 mg/dL (8.4-10.2) 02/07/24 Urine Protein 30 (1+) mg/dL (Neg-Trace) H 02/13/24 Renal US 03/25/24 Assessment & Plan Assessment & Plan (1) Asymptomatic microscopic hematuria: Code(s): R31.21 - Asymptomatic microscopic hematuria Category: Medical (2) Proteinuria: Comment: intolerant to Losartan (dizzy, dry mouth), Olmesartan Code(s): R80.9 - Proteinuria, unspecified Category: Medical Qualifiers: Proteinuria type: other Qualified Code(s): R80.8 - Other proteinuria (3) HTN (hypertension): Code(s): I10 - Essential (primary) hypertension Category: Medical Qualifiers: Hypertension type: primary hypertension Qualified Code(s): I10 - Essential (primary) hypertension Plan Alfonso has proteinuria likely from vascular etiology. Given H/O M/S hematuria in the past, I have ordered extensive work up including renal imaging which was unrevealing. HIs 24 hour urine for protein showed 341 gram. His C3/C4 were low. Patient has H/O CAD as well as CABG. He was unsure what his intolerance to ACEI or ARB but thinks he felt dizzy on taking them. After explaining the side effects, I started him on Olmesartan 5 mg at night which I shall maximize with time after D/Cing metoprolol at that time. He may need a renal biopsy based on evolving data. Answered all questions. Labs ordered. Follow up given Orders: Orders Creatinine Today I10 - Essential (primary) hypertension, R80.8 - Other proteinuria Blood Urea Nitrogen Today I10 - Essential (primary) hypertension, R80.8 - Other proteinuria Electrolytes Today I10 - Essential (primary) hypertension, R80.8 - Other proteinuria Medications: New olmesartan 5 mg PO DAILY 90 days 90 tabs 3RF Coding Level of Care Code Est Pt Level 4 (40163) Diagnoses Asymptomatic microscopic hematuria R31.21 Other proteinuria R80.8 Proteinuria type: other Primary hypertension I10 Hypertension type: primary hypertension
[2024-04-30 09:48] VITALS: BP 130/74; PULSE 55; O2SAT 97; BMI 30.1
== END 2024-04-30 10:19 | disposition home or self-care (01) ==
PROVIDERS: PCP Internal Medicine; Visit Provider Internal Medicine Nephrology
DX: R31.21 Asymptomatic microscopic hematuria (principal); R80.8 Other proteinuria; I10 Essential (primary) hypertension
CPT/HCPCS: 99214

== ENCOUNTER → 2024-04-30 09:25 | Outpatient (BNVA) | payer MEDICARE, SELFPAY | PROVIDERS: PCP Internal Medicine; Visit Provider Internal Medicine Nephrology | DX: R31.21 Asymptomatic microscopic hematuria (principal); R80.8 Other proteinuria; I10 Essential (primary) hypertension | CPT/HCPCS: 99212 ==

== ENCOUNTER 2024-08-02 06:01 | Outpatient (REF) | payer MEDICARE, SELFPAY ==
[2024-08-02 10:06] LABS: MANUAL DIFF FLAG NO
[2024-08-02 10:09] LABS: Appearance Urine Clear; Color Urine Yellow; Glucose Urine UA Negative (Negative); Leukocyte Esterase Urine Negative (Negative); Nitrite Urine Negative (Negative); PH 5.5 (5.0-9.0); UMIC TRIGGER UACC YES; Urine Blood Moderate (2+) (Negative); Urine Ketones Negative (Negative); Urine Protein 30 (1+) mg/dL (Neg-Trace)
[2024-08-02 10:13] LABS: Basophils Absolute Auto 0.1 X10*3/uL (0.0-0.2); Basophils Percent Auto 0.7 % (0-2); Eosinophils Absolute Auto 0.2 X10*3/uL (0.0-0.4); Eosinophils Percent Auto 2.8 % (0-4); Hematocrit 48.5 % (42.0-52.0); Hemoglobin 16.1 g/dl (14.0-18.0); Imm Gran Abs Auto 0.01 X10*3/uL (0.00-0.03); Imm Gran Pct Auto 0.1 % (0.0-0.4); Lymphocytes Absolute Auto 1.9 X10*3/uL (1.2-4.9); Lymphocytes Percent Auto 22.3 % (20-40); Mean Corpuscular HGB Conc 33.2 g/dl (31.0-36.0); Mean Corpuscular Hemoglobin 31.6 pg (27.0-33.0); Mean Corpuscular Volume 95.1 fL (80.0-98.0); Mean Platelet Volume 11.5 fL (9.4-12.4); Monocytes Absolute Auto 0.9 X10*3/uL (0.1-1.2); Monocytes Percent Auto 10.8 % (2-11); Neutrophils Absolute Auto 5.5 x10*3/uL (2.0-8.3); Neutrophils Percent Auto 63.3 % (45-73); Platelet Count 155 X10*3/uL (160-400); Red Cell Distribution Width 12.7 % (11.0-16.0); White Blood Count 8.7 X10*3/uL (4.8-10.8)
[2024-08-02 10:16] LABS: Bacteria Urine None Seen (None Seen); Hyaline Casts Urine 0-2 /LPF (0-2); Squamous Epithelial Cell Urine 0-2 /HPF (0-2); WBC Urine 0-5 /HPF (0-5)
[2024-08-02 10:45] LABS: Alanine Aminotransferase 14 U/L (0-40); Albumin Level 4.1 g/dL (3.5-5.0); Alkaline Phosphatase 51 U/L (39-117); Anion Gap 12 (12-20); Aspartate Amino Transferase 21 U/L (5-37); Bilirubin Total 0.5 mg/dL (0.0-1.0); Blood Urea Nitrogen 17 mg/dL (9-16); Calcium 9.4 mg/dL (8.4-10.2); Carbon Dioxide 26 mmol/L (22-29); Chloride 109 mmol/L (96-108); Cholesterol 129 mg/dL (<200); Estimated Glomerular Filt Rate > 60; Glucose Fasting 122 mg/dL (60-99); HDL Cholesterol 31 mg/dL (>40); LDL Cholesterol Calculated 75 mg/dL (<100); Potassium 3.8 mmol/L (3.3-5.1); Sodium 143 mmol/L (135-145); Total Protein 7.3 g/dL (6.5-8.0); Triglycerides 115 mg/dL (<150)
[2024-08-02 10:55] LABS: Estimated Average Glucose 123 mg/dL; Hemoglobin A1c % 5.9 % (<6.0)
[2024-08-02 10:56] LABS: PSA,Total (Free>4and<10) 2.86 ng/mL (0.00-4.00)
[2024-08-02 11:04] LABS: Creatinine Urine 172.16 mg/dL; Microalbum/Creatinine Ratio Ur 75.5 ug/mg cr (<30)
== END 2024-08-02 06:02 | disposition home or self-care (01) ==
LOC: HO.HMGCLDS 06:01
PROVIDERS: PCP Internal Medicine; Visit Provider Internal Medicine
DX: Z00.00 Encounter for general adult medical examination without abnormal findings (principal); E78.5 Hyperlipidemia, unspecified; R80.9 Proteinuria, unspecified; R31.29 Other microscopic hematuria; I10 Essential (primary) hypertension; Z12.5 Encounter for screening for malignant neoplasm of prostate; Z13.1 Encounter for screening for diabetes mellitus
CPT/HCPCS: 36415; 80053; 80061; 81001; 82043; 82570; 83036; 84153; 85025

== ENCOUNTER 2024-08-15 08:50 | Outpatient (AMB) | payer MEDICARE, SELFPAY ==
[2024-08-15 08:53] VITALS: BP 110/76; PULSE 59; O2SAT 100; BMI 29.2
--- NOTE | 2024-08-15 08:53 | A.OFFPC_ITS ---
Vital Signs 08/15/24 08:53 Height 5 ft 8 in Weight 192 lb BMI 29.2 BP 110/76 Blood Pressure Location Lt brachial Position Sitting Pulse 59 Pulse Source Pulse Oximeter Pulse Oximetry (%) 100 Oxygen Delivery Method Room Air Intake Visit Reasons: Follow up Intake Note: Pt is here today for a follow up visit. Allergies losartan Adverse Reaction (Intermediate, Verified 08/15/24 08:55) headache, muscle aches olmesartan Adverse Reaction (Intermediate, Verified 08/15/24 08:55) Dizziness olmestar Adverse Reaction (Uncoded 08/15/24 08:55) Dizziness Medication List - Last Reconciled 08/15/24 by Merle Daniel MD aspirin 81 mg PO DAILY ezetimibe-simvastatin 10-80 mg 1 tab PO DAILY famotidine (Pepcid) 40 mg PO BEDTIME metoprolol succinate ER 25 mg PO DAILY Tobacco use date assessed: 08/15/24 Fall risk assessment: No Falls in past year Last assessed Fall Risk: 08/15/24 Dental Screening Dental Screen Date: 02/13/24 HPI Follow up HPI Details Pt presents for f/u hyperlipid, hyperlipidemia. Patient is established with nephrology for proteinuria and microscopic hematuria and urologist for microscopic hematuria and atypical urine cytology and negative cystoscopy. Patient continues to smoke a pack a day and is trying to quit. He declined chest CT this year but like to schedule one next year to follow-up on the lung nodule. [facility] Medical History (Updated 08/15/24 @ 09:24 by Merle Daniel MD) Annual physical exam Acute bacterial tonsillitis Tobacco dependence Lung nodule seen on imaging study Normal colonoscopy Smoker Proteinuria Microhematuria HTN (hypertension) Ascending aortic aneurysm GERD (gastroesophageal reflux disease) Hyperlipidemia Surgical History H/O colonoscopy Hx of CABG Family History Father No problems noted. Social History Housing: House Patient Tobacco Use Status: Current everyday Tobacco user Cigarette Packs Per Day: 1 Cigarettes Per Day: 20.0 Years Smoked: 30 e-Cigarette/Vaping Use: Never Used service: No Current occupational status: retired Cognitive needs: No Hearing needs: No Vision needs: Yes Questionnaire Thrive Questionnaire Date Thrive assessed: 02/13/24 DC-7 AMB Questionnaire DC-7 Date DC - 7 assessed: 02/13/24 Source: Developed by Drs. Skyler Choudhury, Adriana Lee, Ubaldo Molina and colleagues, with an educational miah from [employer]. Review of Systems Const All systems reviewed & are unremarkable except as noted in HPI and below ENT Reports no additional complaints Card Reports no additional complaints Resp Reports no additional complaints GI Reports no additional complaints Reports no additional complaints Physical exam (Primary Care) Vital Signs: Last Vital Signs Pulse 59 08/15/24 08:53 BP 110/76 08/15/24 08:53 Pulse Ox 100 08/15/24 08:53 Oxygen Delivery Method Room Air 08/15/24 08:53 BMI result Body Mass Index 29.2 Tobacco/Smoking Status: Tobacco use Status Tobacco use date assessed 08/15/24 08/15/24 08:57 Patient Tobacco Use Status Current everyday Tobacco 08/15/24 08:55 e-Cigarette/Vaping Use Never Used 08/15/24 08:55 Thrive Assessment: Date of Thrive Assessment Date Thrive assessed 02/13/24 08/15/24 08:55 Const General: no acute distress HENMT Head: Yes normal to inspection Eyes General: appearance normal, both eyes and all related structures Neck Neck: Yes supple Resp Effort & Inspection: normal respiratory effort Auscultation: clear to auscultation bilaterally Cardio Rhythm: regular rhythm Heart sounds: S1 normal heart sound present and S2 normal heart sound present Assessment and Plan Assessment & Plan (1) Lung nodules: Code(s): R91.8 - Other nonspecific abnormal finding of lung field Plan: Scheduled follow-up CT of the chest (2) Ascending aortic aneurysm: Comment: CT scan [facility] 06/2021 stable 4.2 cm ascending AA since 2013, Echo 01/2020 nl EF, CT 02/16 4.0X4.2 ascending aorta Code(s): I71.2 - Thoracic aortic aneurysm, without rupture (3) Microhematuria: Comment: multiple atypical squamous cells on multiple urine cytology, negative urovysion, cystoscopy 01/2020, f/u , [facility], negative urine cytology 07/19 Code(s): R31.29 - Other microscopic hematuria Plan: Follow-up with urology and nephrology (4) Proteinuria: Comment: intolerant to Losartan (dizzy, dry mouth), Olmesartan, established with nephrology Code(s): R80.9 - Proteinuria, unspecified Qualifiers: Proteinuria type: other Qualified Code(s): R80.8 - Other proteinuria Plan: Follow-up with nephrology (5) Smoker: Comment: 1 PPD, >30 yrs, trying to quit, Chest CT 02/16 atalectasis, RUL nodule stable since 2019 Code(s): F17.200 - Nicotine dependence, unspecified, uncomplicated Plan: Tobacco quitting discussed with the patient (6) Hyperlipidemia: Code(s): E78.5 - Hyperlipidemia, unspecified Plan: Continue current medications (7) Normal colonoscopy: Comment: negative 09/2014 Dr. Templeton, negative Cologuard 02/2024 Orders: Orders CT chest wo IV con Today R91.8 - Other nonspecific abnormal finding of lung field Comprehensive [place]. Panel Fast 6 Months F17.200 - Nicotine dependence, unspecified, uncomplicated, I71.2 - Thoracic aortic aneurysm, without rupture, R31.29 - Other microscopic hematuria, R80.8 - Other proteinuria Complete Blood Count Auto Diff 6 Months F17.200 - Nicotine dependence, unspecif ied, uncomplicated, I71.2 - Thoracic aortic aneurysm, without rupture, R31.29 - Other microscopic hematuria, R80.8 - Other proteinuria Lipid Panel 6 Months F17.200 - Nicotine dependence, unspecified, uncomplicated, I71.2 - Thoracic aortic aneurysm, without rupture, R31.29 - Other microscopic hematuria, R80.8 - Other proteinuria Hemoglobin A1c 6 Months F17.200 - Nicotine dependence, unspecified, uncomplicated, I71.2 - Thoracic aortic aneurysm, without rupture, R31.29 - Other microscopic hematuria, R80.8 - Other proteinuria Microalbumin, Random (w Creat) 6 Months F17.200 - Nicotine dependence, unspecified, uncomplicated, I71.2 - Thoracic aortic aneurysm, without rupture, R31.29 - Other microscopic hematuria, R80.8 - Other proteinuria Medications: Refilled ezetimibe-simvastatin 10-80 mg 1 tab PO DAILY 90 tabs 3RF metoprolol succinate ER 25 mg PO DAILY 90 tabs 3RF Discontinued olmesartan Discontinued Reason: Doctor's Order 5 mg PO DAILY 90 days 90 tabs 3RF Coding Level of Care Code Est Pt Level 4 (31859) Diagnoses Lung nodules R91.8 Ascending aortic aneurysm I71.2 Microhematuria R31.29 Other proteinuria R80.8 Proteinuria type: other Smoker F17.200 Hyperlipidemia E78.5 Normal colonoscopy
== END 2024-08-15 09:24 | disposition home or self-care (01) ==
PROVIDERS: PCP Internal Medicine; Visit Provider Internal Medicine
DX: R91.8 Other nonspecific abnormal finding of lung field (principal); I71.20 Thoracic aortic aneurysm, without rupture, unspecified; R31.29 Other microscopic hematuria; R80.8 Other proteinuria; F17.200 Nicotine dependence, unspecified, uncomplicated; E78.5 Hyperlipidemia, unspecified

== ENCOUNTER → 2024-08-15 08:50 | Outpatient (BNVA) | payer MEDICARE, SELFPAY | PROVIDERS: PCP Internal Medicine; Visit Provider Internal Medicine | DX: R91.8 Other nonspecific abnormal finding of lung field (principal); R31.29 Other microscopic hematuria; I71.20 Thoracic aortic aneurysm, without rupture, unspecified; R80.8 Other proteinuria; E78.5 Hyperlipidemia, unspecified; F17.200 Nicotine dependence, unspecified, uncomplicated | CPT/HCPCS: 99212 ==

== ENCOUNTER 2024-11-28 15:05 | Outpatient (REF) | payer MEDICARE, SELFPAY ==
--- NOTE | ~2024-11-28 | CT_ITS ---
CLINICAL HISTORY: LUNG NODULES CT chest without contrast Comparison: 01/25/2023 Findings: The heart is normal size. The visualized thyroid and mediastinum are unremarkable. No new consolidation or effusion. No new solid or semi solid mass. The upper abdomen is unremarkable. The bones are intact. IMPRESSION: 1. No acute findings. This document has been electronically signed by: Julien Oglesby MD on 11/29/2024 17:19:03
== END 2024-11-28 15:06 | disposition home or self-care (01) ==
LOC: HO.CT 15:05
PROVIDERS: PCP Internal Medicine; Visit Provider Internal Medicine
DX: R91.8 Other nonspecific abnormal finding of lung field (principal)
CPT/HCPCS: 71250

== ENCOUNTER → 2024-11-28 15:08 | Outpatient (BNV) | payer MEDICARE, SELFPAY | PROVIDERS: PCP Internal Medicine; Visit Provider Specialist | DX: R91.8 Other nonspecific abnormal finding of lung field (principal) | CPT/HCPCS: 71250 ==

== ENCOUNTER 2025-02-13 06:07 | Outpatient (REF) | payer MEDICARE, SELFPAY ==
[2025-02-13 10:08] LABS: Appearance Urine Clear; Color Urine Yellow; Glucose Urine UA Negative (Negative); Leukocyte Esterase Urine Trace (Negative); Nitrite Urine Negative (Negative); UMIC TRIGGER UACC YES; Urine Blood Small (1+) (Negative); Urine Ketones Negative (Negative); Urine Protein 30 (1+) mg/dL (Neg-Trace)
[2025-02-13 10:10] LABS: MANUAL DIFF FLAG NO
[2025-02-13 10:21] LABS: Bacteria Urine None Seen (None Seen); Squamous Epithelial Cell Urine 0-2 /HPF (0-2); UACC Culture Trigger YES
[2025-02-13 10:22] LABS: Basophils Percent Auto 0.4 % (0-2); Eosinophils Absolute Auto 0.2 X10*3/uL (0.0-0.4); Eosinophils Percent Auto 2.6 % (0-4); Hematocrit 47.4 % (42.0-52.0); Hemoglobin 15.4 g/dl (14.0-18.0); Imm Gran Abs Auto 0.02 X10*3/uL (0.00-0.03); Imm Gran Pct Auto 0.3 % (0.0-0.4); Lymphocytes Absolute Auto 1.8 X10*3/uL (1.2-4.9); Mean Corpuscular HGB Conc 32.5 g/dl (31.0-36.0); Mean Corpuscular Hemoglobin 30.9 pg (27.0-33.0); Mean Platelet Volume 11.4 fL (9.4-12.4); Monocytes Absolute Auto 0.7 X10*3/uL (0.1-1.2); Monocytes Percent Auto 9.6 % (2-11); Neutrophils Absolute Auto 4.6 x10*3/uL (2.0-8.3); Neutrophils Percent Auto 63.1 % (45-73); Platelet Count 161 X10*3/uL (160-400); Red Blood Count 4.99 X10*6/uL (4.60-5.80); Red Cell Distribution Width 12.7 % (11.0-16.0); White Blood Count 7.3 X10*3/uL (4.8-10.8)
[2025-02-13 10:24] LABS: Estimated Average Glucose 123 mg/dL; Hemoglobin A1c % 5.9 % (<6.0)
[2025-02-13 10:36] LABS: Alanine Aminotransferase 16 U/L (0-40); Albumin Level 3.9 g/dL (3.5-5.0); Alkaline Phosphatase 52 U/L (39-117); Anion Gap 10 (12-20); Aspartate Amino Transferase 30 U/L (5-37); Bilirubin Total 0.8 mg/dL (0.0-1.0); Blood Urea Nitrogen 19 mg/dL (9-16); Calcium 9.1 mg/dL (8.4-10.2); Carbon Dioxide 27 mmol/L (22-29); Chloride 109 mmol/L (96-108); Cholesterol 129 mg/dL (<200); Estimated Glomerular Filt Rate > 60; Glucose Fasting 110 mg/dL (60-99); HDL Cholesterol 31 mg/dL (>40); LDL Cholesterol Calculated 72 mg/dL (<100); Potassium 3.7 mmol/L (3.3-5.1); Sodium 142 mmol/L (135-145); Total Protein 7.3 g/dL (6.5-8.0); Triglycerides 134 mg/dL (<150)
[2025-02-13 10:58] LABS: Creatinine Urine 162.37 mg/dL; Microalbum/Creatinine Ratio Ur 142.2 ug/mg cr (<30)
== END 2025-02-13 06:08 | disposition home or self-care (01) ==
LOC: HO.HMGCLDS 06:07
PROVIDERS: Internal Medicine Nephrology; PCP Internal Medicine; Visit Provider Internal Medicine
DX: R80.8 Other proteinuria (principal); R31.29 Other microscopic hematuria; I71.20 Thoracic aortic aneurysm, without rupture, unspecified; F17.200 Nicotine dependence, unspecified, uncomplicated
CPT/HCPCS: 36415; 80053; 80061; 81001; 81003; 82043; 82570; 83036; 85025; 87086

== ENCOUNTER 2025-02-20 08:05 | Outpatient (AMB) | payer MEDICARE, SELFPAY ==
--- NOTE | 2025-02-20 08:11 | A.OFFPC_ITS ---
Vital Signs 02/20/25 08:18 Height 5 ft 8 in Weight 194 lb BMI 29.5 BP 128/80 Blood Pressure Location Lt brachial Position Sitting Respiration 18 Pulse 50 Pulse Source Pulse Oximeter Pulse Oximetry (%) 97 Oxygen Delivery Method Room Air Intake Visit Reasons: Annual PE Intake Note: Pt is here today for PE. Allergies losartan Adverse Reaction (Intermediate, Verified 02/20/25 08:20) headache, muscle aches olmesartan Adverse Reaction (Intermediate, Verified 02/20/25 08:20) Dizziness olmestar Adverse Reaction (Uncoded 02/20/25 08:20) Dizziness Medication List - Last Reconciled 02/20/25 by Merle Daniel MD aspirin 81 mg PO DAILY ezetimibe-simvastatin 10-80 mg 1 tab PO DAILY famotidine (Pepcid) 40 mg PO BEDTIME metoprolol succinate ER 25 mg PO DAILY Tobacco use date assessed: 02/20/25 Fall risk assessment: No Falls in past year Last assessed Fall Risk: 02/20/25 Dental Screening Dental Screen Date: 02/20/25 Did you have a dental visit in the last 12 months?: No Did you have a dental problem in the last 6 months where you did not have access to dental care?: No Was dental information given to patient?: Patient declined HPI Annual PE HPI Details Patient presents for physical [facility] Medical History (Updated 02/20/25 @ 09:06 by Merle Daniel MD) Annual physical exam Acute bacterial tonsillitis Tobacco dependence Lung nodule seen on imaging study Normal colonoscopy Smoker Proteinuria Microhematuria HTN (hypertension) Ascending aortic aneurysm GERD (gastroesophageal reflux disease) Hyperlipidemia Surgical History H/O colonoscopy Hx of CABG Family History Father No problems noted. Social History Housing: House Patient Tobacco Use Status: Current everyday Tobacco user Cigarette Packs Per Day: 1 Cigarettes Per Day: 20.0 Years Smoked: 30 e-Cigarette/Vaping Use: Never Used service: No Current occupational status: retired Cognitive needs: No Hearing needs: No Vision needs: Yes Questionnaire PHQ-9 Over the last 2 weeks, how often have you been bothered by any of the following problems? 1. Little interest or pleasure in doing things: not at all 2. Feeling down, depressed, or hopeless: not at all 3. Trouble falling or staying asleep, or sleeping too much: not at all 4. Feeling tired or having little energy: not at all 5. Poor appetite or overeating: not at all 6. Feeling bad about yourself - or that you are a failure or have let yourself or your family down: not at all 7. Trouble concentrating on things, such as reading the newspaper or watching television: not at all 8. Moving or speaking so slowly that other people could have noticed. Or the opposite - being so fidgety or restless that you have been moving around a lot more than usual: not at all 9. Thoughts that you would be better off or of hurting yourself in some way: not at all Total score: 0 Depression Screening Interpretation: Negative Depression Screening Done: Yes 68256 - PHQ-9 Billing: Yes Source: Developed by Drs. Skyler Choudhury, Adriana Lee, Ubaldo Molina and colleagues, with an educational miah from [employer]. Thrive Questionnaire Date Thrive assessed: 02/20/25 I am a: Patient What is your living situation today?: I choose not to answer this question Within the past 12 months, did the food you bought not last and you didn't have the money to get more?: I choose not to answer this question Within the past 12 months, did you worry whether your food would run out before you got money to buy more?: I choose not to answer this question Do you have trouble paying for medicines?: I choose not to answer this question Do you have trouble getting transportation to medical appointments?: I choose not to answer this question Do you have trouble paying your heating and electricity bill?: I choose not to answer this question Do you have trouble taking care of your child, family member or friend?: I choose not to answer this question Do you have trouble with day-to-day activities such as bathing, preparing meals, shopping, managing finances, etc.?: I choose not to answer this question Are you currently unemployed and looking for a job?: I choose not to answer this question Are you interested in more education?: I choose not to answer this question THRIVE Score: 0 DC-7 AMB Questionnaire DC-7 Date DC - 7 assessed: 02/20/25 Feeling nervous, anxious, or on edge: 0 = Not at all Not being able to stop or control worryin = Not at all Worrying too much about different things: 0 = Not at all Trouble relaxin = Not at all Being so restless that it is hard to sit still: 0 = Not at all Becoming easily annoyed or irritable: 0 = Not at all Feeling afraid as if something awful might happen: 0 = Not at all Total DC-7 score (0-4 normal; 5-9 mild; 10-14 moderate; 15-21 severe): 0 Source: Developed by Drs. Skyler Choudhury, Adriana Lee, Ubaldo Molina and colleagues, with an educational miah from [employer]. DC-7 Assessment Billing DC-7 Assessment Tool: DC-7 Assessment 15025 Review of Systems Const All systems reviewed & are unremarkable except as noted in HPI and below Eyes Reports no additional complaints ENT Reports no additional complaints Card Reports no additional complaints Resp Reports no additional complaints GI Reports no additional complaints Reports no additional complaints Physical exam (Primary Care) Vital Signs: Last Vital Signs Pulse 50 02/20/25 08:18 Resp 18 02/20/25 08:18 BP 128/80 02/20/25 08:18 Pulse Ox 97 02/20/25 08:18 Oxygen Delivery Method Room Air 02/20/25 08:18 BMI result Body Mass Index 29.5 Tobacco/Smoking Status: Tobacco use Status Tobacco use date assessed 02/20/25 02/20/25 08:24 Patient Tobacco Use Status Current everyday Tobacco 02/20/25 08:11 e-Cigarette/Vaping Use Never Used 02/20/25 08:11 PHQ-9: PHQ-9 Score PHQ-9: Total score 0 02/20/25 08:24 Depression Screening Interpretation: Negative Thrive Assessment: Date of Thrive Assessment Date Thrive assessed 02/20/25 02/20/25 08:24 Const General: no acute distress HENMT Head: Yes normal to inspection Ears: TM's normal bilaterally Throat: Yes posterior oropharynx normal Eyes General: appearance normal, both eyes and all related structures Neck Neck: Yes no lymphadenopathy and Yes supple Resp Effort & Inspection: normal respiratory effort Auscultation: diminished lung sounds Cardio Rhythm: regular rhythm Heart sounds: S1 normal heart sound present and S2 normal heart sound present GI Inspection: Yes normal to inspection Palpation (GI): Soft to palpation Percussion: Yes normal to percussion Auscultation: normal bowel sounds Coding Level of Care Code Est Pt Prev Care >65y(30627) Diagnoses Primary hypertension I10 Hypertension type: primary hypertension Microhematuria R31.29 Annual physical exam Z00.00 Ascending aortic aneurysm I71.2 Normal colonoscopy Smoker F17.200 Other proteinuria R80.8 Proteinuria type: other Additional Codes DC-7 Assessment Billing - DC-7 Assessment Tool: DC-7 Assessment 12520 ([id number]) PHQ-9 - 34762 - PHQ-9 Billing: Yes ([id number]) Assessment & Plan Assessment & Plan (1) HTN (hypertension): Comment: Intolerant to losartan and olmesartan Code(s): I10 - Essential (primary) hypertension Category: Medical Qualifiers: Hypertension type: primary hypertension Qualified Code(s): I10 - Essential (primary) hypertension Plan: Continue metoprolol (2) Microhematuria: Comment: multiple atypical squamous cells on multiple urine cytology, negative urovysion, cystoscopy 01/2020, f/u , [facility], negative urine cytology 07/19 Code(s): R31.29 - Other microscopic hematuria Category: Medical Plan: Follow-up with urology (3) Annual physical exam: Code(s): Z00.00 - Encounter for general adult medical examination without abnormal findings Category: Medical Plan: Well-balanced diet regular physical activity discussed with the patient, he had negative Cologuard last year (4) Ascending aortic aneurysm: Comment: CT scan [facility] 06/2021 stable 4.2 cm ascending AA since 2013, Echo 01/2020 nl EF, CT 02/16 4.0X4.2 ascending aorta Code(s): I71.2 - Thoracic aortic aneurysm, without rupture Category: Medical Plan: Continue to monitor with periodic echocardiogram (5) Normal colonoscopy: Comment: negative 09/2014 Dr. Templeton, negative Cologuard 02/2024 Category: Medical Plan: Negative Cologuard last year (6) Smoker: Comment: 1 PPD, >30 yrs, trying to quit, Chest CT 02/16 atalectasis, RUL nodule stable since 2019 Code(s): F17.200 - Nicotine dependence, unspecified, uncomplicated Category: Social Hx Plan: Tobacco quitting discussed with the patient (7) Proteinuria: Comment: intolerant to Losartan (dizzy, dry mouth), Olmesartan, established with nephrology Code(s): R80.9 - Proteinuria, unspecified Category: Medical Qualifiers: Proteinuria type: other Qualified Code(s): R80.8 - Other proteinuria Plan: A1c is 5.9 and patient has persistent proteinuria Jardiance 10 mg daily will be added and patient will follow-up in 3 months with a fasting labs before Orders: Orders Hemoglobin A1c 3 Months I10 - Essential (primary) hypertension, R31.29 - Other microscopic hematuria Comprehensive [place]. Panel Fast 3 Months I10 - Essential (primary) hypertension, R31.29 - Other microscopic hematuria Microalbumin, Random (w Creat) 3 Months I10 - Essential (primary) hypertension, R31.29 - Other microscopic hematuria Medications: New empagliflozin (Jardiance) 10 mg PO DAILY 90 tabs 0RF
[2025-02-20 08:18] VITALS: BP 128/80; PULSE 50; RESP 18; O2SAT 97; BMI 29.5
== END 2025-02-20 08:52 | disposition home or self-care (01) ==
LOC: HO.HMCC 08:05
PROVIDERS: PCP Internal Medicine; Visit Provider Internal Medicine
DX: I10 Essential (primary) hypertension (principal); R31.29 Other microscopic hematuria; Z00.00 Encounter for general adult medical examination without abnormal findings; I71.20 Thoracic aortic aneurysm, without rupture, unspecified; F17.200 Nicotine dependence, unspecified, uncomplicated; R80.8 Other proteinuria

== ENCOUNTER → 2025-02-20 08:05 | Outpatient (BNVA) | payer MEDICARE, SELFPAY | PROVIDERS: PCP Internal Medicine; Visit Provider Internal Medicine | DX: Z00.00 Encounter for general adult medical examination without abnormal findings (principal); I10 Essential (primary) hypertension; R31.29 Other microscopic hematuria; I71.20 Thoracic aortic aneurysm, without rupture, unspecified; R80.8 Other proteinuria; F17.200 Nicotine dependence, unspecified, uncomplicated; Z71.6 Tobacco abuse counseling | CPT/HCPCS: 96127; 99397 ==

== ENCOUNTER 2025-05-19 06:03 | Outpatient (REF) | payer MEDICARE, SELFPAY ==
[2025-05-19 10:49] LABS: Estimated Average Glucose 120 mg/dL; Hemoglobin A1C 167.2105 umol/L; Hemoglobin A1c % 5.8 % (<6.0)
[2025-05-19 10:54] LABS: Creatinine Urine 115.23 mg/dL; Microalbum/Creatinine Ratio Ur 61.6 ug/mg cr (<30)
[2025-05-19 11:02] LABS: Alanine Aminotransferase 17 U/L (0-40); Alkaline Phosphatase 52 U/L (39-117); Anion Gap 12 (12-20); Aspartate Amino Transferase 33 U/L (5-37); Bilirubin Total 0.7 mg/dL (0.0-1.0); Blood Urea Nitrogen 23 mg/dL (9-16); Calcium 9.1 mg/dL (8.4-10.2); Carbon Dioxide 26 mmol/L (22-29); Chloride 109 mmol/L (96-108); Estimated Glomerular Filt Rate 54; Glucose Fasting 100 mg/dL (60-99); Potassium 4.2 mmol/L (3.3-5.1); Sodium 143 mmol/L (135-145); Total Protein 6.9 g/dL (6.5-8.0)
== END 2025-05-19 06:04 | disposition home or self-care (01) ==
LOC: HO.HMGCLDS 06:03
PROVIDERS: PCP Internal Medicine; Visit Provider Internal Medicine
DX: R31.29 Other microscopic hematuria (principal); I10 Essential (primary) hypertension; Z13.1 Encounter for screening for diabetes mellitus
CPT/HCPCS: 36415; 80053; 82043; 82570; 83036

== ENCOUNTER 2025-05-26 09:35 | Outpatient (AMB) | payer MEDICARE, SELFPAY ==
[2025-05-26 09:47] VITALS: BP 126/76; PULSE 58; RESP 18; TEMP 36.7; O2SAT 97; BMI 28.4
--- NOTE | 2025-05-26 09:47 | MHC.PC.OV ---
Vital Signs 05/26/25 09:47 Height 5 ft 8 in Weight 187 lb BMI 28.4 BP 126/76 Blood Pressure Location Lt brachial Position Sitting Respiration 18 Pulse 58 Pulse Source Pulse Oximeter Temp 98.1 F Temp Source Oral Pulse Oximetry (%) 97 Oxygen Delivery Method Room Air Intake Visit Reasons: 3m f/u Intake Note: Pt is here today for 3 months follow up visit. Allergies losartan Adverse Reaction (Intermediate, Verified 05/26/25 09:53) headache, muscle aches olmesartan Adverse Reaction (Intermediate, Verified 05/26/25 09:53) Dizziness olmestar Adverse Reaction (Uncoded 05/26/25 09:53) Dizziness Medication List - Last Reconciled 05/26/25 by Merle Daniel MD aspirin 81 mg PO DAILY ezetimibe-simvastatin 10-80 mg 1 tab PO DAILY famotidine (Pepcid) 40 mg PO BEDTIME metoprolol succinate ER 25 mg PO DAILY scopolamine base 1 patch transdermal Q3D PRN Tobacco use date assessed: 05/26/25 Fall risk assessment: No Falls in past year Last assessed Fall Risk: 05/26/25 Dental Screening Dental Screen Date: 02/20/25 HPI 3m f/u HPI Details Patient presents for the follow-up on hyperlipidemia hypertension hyperglycemia stable on current medications. [facility] Medical History Annual physical exam Acute bacterial tonsillitis Tobacco dependence Lung nodule seen on imaging study Normal colonoscopy Smoker Proteinuria Microhematuria HTN (hypertension) Ascending aortic aneurysm GERD (gastroesophageal reflux disease) Hyperlipidemia Surgical History H/O colonoscopy Hx of CABG Family History Father No problems noted. Social History Housing: House Patient Tobacco Use Status: Current everyday Tobacco user Cigarette Packs Per Day: 1 Cigarettes Per Day: 20.0 Years Smoked: 30 e-Cigarette/Vaping Use: Never Used service: No Current occupational status: retired Cognitive needs: No Hearing needs: No Vision needs: Yes Questionnaire Thrive Questionnaire Date Thrive assessed: 02/20/25 DC-7 AMB Questionnaire DC-7 Date DC - 7 assessed: 02/20/25 Source: Developed by Drs. Skyler Choudhury, Adriana Lee, Ubaldo Molina and colleagues, with an educational miah from [employer]. Review of Systems Const All systems reviewed & are unremarkable except as noted in HPI and below Eyes Reports no additional complaints ENT Reports no additional complaints Card Reports no additional complaints Resp Reports no additional complaints GI Reports no additional complaints Reports no additional complaints Physical exam (Primary Care) Vital Signs: Last Vital Signs Temp 98.1 F 05/26/25 09:47 Pulse 58 05/26/25 09:47 Resp 18 05/26/25 09:47 BP 126/76 05/26/25 09:47 Pulse Ox 97 05/26/25 09:47 Oxygen Delivery Method Room Air 05/26/25 09:47 BMI result Body Mass Index 28.4 Tobacco/Smoking Status: Tobacco use Status Tobacco use date assessed 05/26/25 05/26/25 09:53 Patient Tobacco Use Status Current everyday Tobacco 05/26/25 09:48 e-Cigarette/Vaping Use Never Used 05/26/25 09:48 Thrive Assessment: Date of Thrive Assessment Date Thrive assessed 02/20/25 05/26/25 09:48 Const General: no acute distress HENMT Head: Yes normal to inspection Resp Effort & Inspection: normal respiratory effort Auscultation: clear to auscultation bilaterally Cardio Rhythm: regular rhythm Heart sounds: S1 normal heart sound present and S2 normal heart sound present GI Inspection: Yes normal to inspection Palpation (GI): Soft to palpation Coding Level of Care Code Est Pt Level 4 (77550) Complex EM visit Add On G2211 Diagnoses Hyperlipidemia E78.5 Primary hypertension I10 Hypertension type: primary hypertension Hyperglycemia R73.9 Smoker F17.200 Assessment & Plan Assessment & Plan (1) Hyperlipidemia: Code(s): E78.5 - Hyperlipidemia, unspecified Category: Medical Plan: Continue current medications (2) HTN (hypertension): Comment: Intolerant to losartan and olmesartan Code(s): I10 - Essential (primary) hypertension Category: Medical Qualifiers: Hypertension type: primary hypertension Qualified Code(s): I10 - Essential (primary) hypertension Plan: Continue metoprolol (3) Hyperglycemia: Code(s): R73.9 - Hyperglycemia, unspecified Category: Medical Plan: A1c is 5.8, continue ADA diet regular physical activity follow-up in 5 months with a fasting labs before (4) Smoker: Comment: 1 PPD, >30 yrs, trying to quit, Chest CT 02/16 atalectasis, RUL nodule stable since 2019, CT chest 11/2024 Code(s): F17.200 - Nicotine dependence, unspecified, uncomplicated Category: Social Hx Plan: Tobacco quitting discussed with the patient Orders: Orders Comprehensive [place]. Panel Fast 5 Months E78.5 - Hyperlipidemia, unspecified, I10 - Essential (primary) hypertension, R73.9 - Hyperglycemia, unspecified Hemoglobin A1c 5 Months E78.5 - Hyperlipidemia, unspecified, I10 - Essential (primary) hypertension, R73.9 - Hyperglycemia, unspecified Complete Blood Count Auto Diff 5 Months E78.5 - Hyperlipidemia, unspecified, I10 - Essential (primary) hypertension, R73.9 - Hyperglycemia, unspecified Lipid Panel 5 Months E78.5 - Hyperlipidemia, unspecified, I10 - Essential (primary) hypertension, R73.9 - Hyperglycemia, unspecified UA w Microscopic 5 Months E78.5 - Hyperlipidemia, unspecified, I10 - Essential (primary) hypertension, R73.9 - Hyperglycemia, unspecified Medications: Refilled metoprolol succinate ER 25 mg PO DAILY 90 tabs 3RF ezetimibe-simvastatin 10-80 mg 1 tab PO DAILY 90 tabs 3RF Discontinued semaglutide (Ozempic) Discontinued Reason: Doctor's Order 0.25 mg (0.368 mL) subcut QWEEK 3 mL 2RF
== END 2025-05-26 10:26 | disposition home or self-care (01) ==
LOC: HO.HMCC 09:36
PROVIDERS: PCP Internal Medicine; Visit Provider Internal Medicine
DX: E78.5 Hyperlipidemia, unspecified (principal); I10 Essential (primary) hypertension; R73.9 Hyperglycemia, unspecified; F17.200 Nicotine dependence, unspecified, uncomplicated

== ENCOUNTER → 2025-05-26 09:35 | Outpatient (BNVA) | payer MEDICARE, SELFPAY | PROVIDERS: PCP Internal Medicine; Visit Provider Internal Medicine | DX: I10 Essential (primary) hypertension (principal); E78.5 Hyperlipidemia, unspecified; R73.9 Hyperglycemia, unspecified; F17.200 Nicotine dependence, unspecified, uncomplicated | CPT/HCPCS: 99212 ==

== ENCOUNTER 2025-10-14 06:01 | Outpatient (REF) | payer MEDICARE, SELFPAY ==
[2025-10-14 10:33] LABS: MANUAL DIFF FLAG NO
[2025-10-14 10:58] LABS: Appearance Urine Clear; Glucose Urine UA Negative (Negative); PH 5.5 (5.0-9.0); Specific Gravity - Urine 1.020 (1.005-1.025); UMIC TRIGGER UA YES
[2025-10-14 11:10] LABS: Hematocrit 50.0 % (42.0-52.0); Hemoglobin 16.1 g/dl (14.0-18.0); Imm Gran Abs Auto 0.03 X10*3/uL (0.00-0.03); Imm Gran Pct Auto 0.4 % (0.0-0.4); Lymphocytes Absolute Auto 1.9 X10*3/uL (1.2-4.9); Mean Corpuscular HGB Conc 32.2 g/dl (31.0-36.0); Mean Corpuscular Hemoglobin 30.8 pg (27.0-33.0); Mean Corpuscular Volume 95.8 fL (80.0-98.0); NRBC Abs Auto 0.000 X10*3/uL (0.0-0.012); NRBC Pct Auto 0.0 /100WBC (0.0-0.2); Platelet Count 158 X10*3/uL (160-400); Red Blood Count 5.22 X10*6/uL (4.60-5.80); White Blood Count 8.5 X10*3/uL (4.8-10.8)
[2025-10-14 11:19] LABS: Alanine Aminotransferase 13 U/L (0-40); Albumin Level 4.0 g/dL (3.5-5.0); Alkaline Phosphatase 52 U/L (39-117); Anion Gap 10 (12-20); Aspartate Amino Transferase 31 U/L (5-37); Blood Urea Nitrogen 18 mg/dL (9-16); Calcium 9.0 mg/dL (8.4-10.2); Carbon Dioxide 28 mmol/L (22-29); Chloride 109 mmol/L (96-108); Cholesterol 133 mg/dL (<200); Estimated Glomerular Filt Rate > 60; HDL Cholesterol 33 mg/dL (>40); Potassium 4.5 mmol/L (3.3-5.1); Sodium 142 mmol/L (135-145); Total Protein 7.0 g/dL (6.5-8.0); Triglycerides 121 mg/dL (<150)
== END 2025-10-14 06:02 | disposition home or self-care (01) ==
LOC: HO.HMGCLDS 06:01
PROVIDERS: PCP Internal Medicine; Visit Provider Internal Medicine
DX: I10 Essential (primary) hypertension (principal); E78.5 Hyperlipidemia, unspecified; R73.9 Hyperglycemia, unspecified
CPT/HCPCS: 36415; 80053; 80061; 81001; 83036; 85025

== ENCOUNTER 2025-10-20 11:28 | Outpatient (AMB) | payer MEDICARE, SELFPAY ==
[2025-10-20 11:40] VITALS: BP 126/74; PULSE 44; RESP 16; TEMP 36.7; O2SAT 100; BMI 28.6
--- NOTE | 2025-10-20 11:40 | MHC.PC.OV ---
Vital Signs 10/20/25 11:40 Height 5 ft 8 in Weight 188 lb BMI 28.6 BP 126/74 Blood Pressure Location Lt brachial Position Sitting Respiration 16 Pulse 44 L Pulse Source Pulse Oximeter Temp 98.1 F Temp Source Oral Pulse Oximetry (%) 100 Oxygen Delivery Method Room Air Intake Visit Reasons: 5m follow up Intake Note: Pt is here today for 5 month follow up visit. Allergies losartan Adverse Reaction (Intermediate, Verified 10/20/25 11:42) headache, muscle aches olmesartan Adverse Reaction (Intermediate, Verified 10/20/25 11:42) Dizziness olmestar Adverse Reaction (Uncoded 10/20/25 11:42) Dizziness Medication List - Last Reconciled 10/20/25 by Merle Daniel MD aspirin 81 mg PO DAILY ezetimibe-simvastatin 10-80 mg 1 tab PO DAILY famotidine (Pepcid) 40 mg PO BEDTIME metoprolol succinate ER 25 mg PO DAILY scopolamine base 1 patch transdermal Q3D PRN Tobacco use date assessed: 10/20/25 Fall risk assessment: No Falls in past year Dental Screening Dental Screen Date: 02/20/25 HPI 5m follow up HPI Details Pt presents for f/u hyperlipid and HTN, stable on medications. Patient continues to smoke a half a pack a day and trying to quit. [facility] Medical History (Updated 10/20/25 @ 18:29 by Merle Daniel MD) Annual physical exam Acute bacterial tonsillitis Tobacco dependence Lung nodule seen on imaging study Normal colonoscopy Smoker Proteinuria Microhematuria HTN (hypertension) Ascending aortic aneurysm GERD (gastroesophageal reflux disease) Hyperlipidemia Surgical History H/O colonoscopy Hx of CABG Family History Father No problems noted. Social History Housing: House Patient Tobacco Use Status: Current everyday Tobacco user Cigarette Packs Per Day: 1 Cigarettes Per Day: 20.0 Years Smoked: 30 e-Cigarette/Vaping Use: Never Used service: No Current occupational status: retired Cognitive needs: No Hearing needs: No Vision needs: Yes Questionnaire Thrive Questionnaire Date Thrive assessed: 02/20/25 CD-7 AMB Questionnaire DC-7 Date DC - 7 assessed: 02/20/25 Source: Developed by DrsKim Choudhury, Adriana Lee, Ubaldo Molina and colleagues, with an educational miah from [employer]. Review of Systems Const All systems reviewed & are unremarkable except as noted in HPI and below Eyes Reports no additional complaints ENT Reports no additional complaints Card Reports no additional complaints Resp Reports no additional complaints GI Reports no additional complaints Physical exam (Primary Care) Vital Signs: Last Vital Signs Temp 98.1 F 10/20/25 11:40 Pulse 44 L 10/20/25 11:40 Resp 16 10/20/25 11:40 BP 126/74 10/20/25 11:40 Pulse Ox 100 10/20/25 11:40 Oxygen Delivery Method Room Air 10/20/25 11:40 BMI result Body Mass Index 28.6 Tobacco/Smoking Status: Tobacco use Status Tobacco use date assessed 10/20/25 10/20/25 11:46 Patient Tobacco Use Status Current everyday Tobacco 10/20/25 11:46 e-Cigarette/Vaping Use Never Used 10/20/25 11:46 Thrive Assessment: Date of Thrive Assessment Date Thrive assessed 02/20/25 10/20/25 11:46 Const General: no acute distress HENMT Head: Yes normal to inspection Mouth: Normal oral and palatal mucosa present Eyes General: appearance normal, both eyes and all related structures Neck Neck: Yes supple Resp Effort & Inspection: normal respiratory effort Auscultation: clear to auscultation bilaterally Cardio Rhythm: regular rhythm Heart sounds: S1 normal heart sound present and S2 normal heart sound present GI Inspection: Yes normal to inspection Palpation (GI): Soft to palpation Coding Level of Care Code Complex visit Add On G2211 Diagnoses Ascending aortic aneurysm I71.2 Primary hypertension I10 Hypertension type: primary hypertension Hyperglycemia R73.9 Smoker F17.200 Assessment & Plan Assessment & Plan (1) Ascending aortic aneurysm: Comment: [facility] scan [facility] 06/2021 stable 4.2 cm ascending AA since 2013, Echo 01/2020 nl EF, 4.0X4.2 ascending aorta, stable Code(s): I71.2 - Thoracic aortic aneurysm, without rupture Category: Medical Plan: Check echo to follow-up on ascending aorta aneurysm (2) HTN (hypertension): Comment: Intolerant to losartan and olmesartan Code(s): I10 - Essential (primary) hypertension Category: Medical Qualifiers: Hypertension type: primary hypertension Qualified Code(s): I10 - Essential (primary) hypertension Plan: Continue metoprolol (3) Hyperglycemia: Code(s): R73.9 - Hyperglycemia, unspecified Category: Medical Plan: ADA diet increase exercise discussed with the patient, monitor A1c (4) Smoker: Comment: 1 PPD, >30 yrs, trying to quit, Chest CT 02/16 atalectasis, RUL nodule stable since 2019, CT chest 11/2024 negative, Code(s): F17.200 - Nicotine dependence, unspecified, uncomplicated Category: Social Hx Plan: Follow-up with lung cancer screening program, tag tobacco quitting discussed with the patient Orders: Orders CA echo transthoracic complete Today I71.2 - Thoracic aortic aneurysm, without rupture Lipid Panel 4 Months I10 - Essential (primary) hypertension, I71.2 - Thoracic aortic aneurysm, without rupture, R73.9 - Hyperglycemia, unspecified UA w Microscopic 4 Months I10 - Essential (primary) hypertension, I71.2 - Thoracic aortic aneurysm, without rupture, R73.9 - Hyperglycemia, unspecified US abdominal aortic aneurysm Today F17.200 - Nicotine dependence, unspecified, uncomplicated Hemoglobin A1c 4 Months I10 - Essential (primary) hypertension, I71.2 - Thoracic aortic aneurysm, without rupture, R73.9 - Hyperglycemia, unspecified Comprehensive [place]. Panel Fast 4 Months I10 - Essential (primary) hypertension, I71.2 - Thoracic aortic aneurysm, without rupture, R73.9 - Hyperglycemia, unspecified Complete Blood Count Auto Diff 4 Months I10 - Essential (primary) hypertension, I71.2 - Thoracic aortic aneurysm, without rupture, R73.9 - Hyperglycemia, unspecified Microalbumin 24 hr Urine 4 Months I10 - Essential (primary) hypertension, I71.2 - Thoracic aortic aneurysm, without rupture, R73.9 - Hyperglycemia, unspecified Referrals Lung Cancer Screening Referral F17.200 - Nicotine dependence, unspecified, uncomplicated
== END 2025-10-20 14:57 | disposition home or self-care (01) ==
LOC: HO.HMCC 11:29
PROVIDERS: PCP Internal Medicine; Visit Provider Internal Medicine
DX: I71.20 Thoracic aortic aneurysm, without rupture, unspecified (principal); I10 Essential (primary) hypertension; R73.9 Hyperglycemia, unspecified; F17.200 Nicotine dependence, unspecified, uncomplicated

== ENCOUNTER → 2025-10-20 11:28 | Outpatient (BNVA) | payer MEDICARE, SELFPAY | PROVIDERS: PCP Internal Medicine; Visit Provider Internal Medicine | DX: I10 Essential (primary) hypertension (principal); I71.20 Thoracic aortic aneurysm, without rupture, unspecified; R73.9 Hyperglycemia, unspecified; F17.210 Nicotine dependence, cigarettes, uncomplicated | CPT/HCPCS: 99212 ==